=== PATIENT | female | born 1955 | race Caucasian/White ===

== ENCOUNTER 2020-01-11 07:08 | Emergency (ER) | payer SELFPAY ==
[~2020-01-11] VITALS: Ht 152.4 cm; Wt 77.1 kg
[~2020-01-11 07:08] MED LIST: FAMOTIDINE20 MG PO; GABAPENTIN300 MG PO; LEXAPRO10 MG PO; MONTELUKAST SOD10 MG PO; ROPINIROLE HCL1 MG PO; TRAZODONE HCL50 MG PO
[2020-01-11] MEDS ORDERED: SODIUM CHLORIDE 0.9% 500ML 500 ML IV ONE (07:15)
[2020-01-11 07:28] LABS: BASOPHILS % 0.6 % (0.0-1.0); EOSINOPHILS # (AUTO) 0.1 (0.0-0.4); HEMATOCRIT 38.1 % (34.2-44.1); HEMOGLOBIN 12.4 g/dL (12.0-16.0); LYMPHOCYTES # (AUTO) 0.7 (1.0-3.2); LYMPHOCYTES % 13.7 % (18.0-39.1); MEAN CORPUSCULAR HEMOGLOBIN 33.1 pg (28-32); MEAN CORPUSCULAR HGB CONC 32.5 g/dL (31-35); MEAN CORPUSCULAR VOLUME 101.6 fL (81-99); MONOCYTES # (AUTO) 0.4 (0.2-0.8); NEUTROPHILS # (AUTO) 3.9 (2.1-6.9); NEUTROPHILS % 77.5 % (38.7-80.0); PLATELET COUNT 151 x10e3/uL (140-360); RED BLOOD COUNT 3.75 x10e6/uL (3.6-5.1); RED CELL DISTRIBUTION WIDTH 14.7 % (11.7-14.4)
[2020-01-11 07:38] LABS: INR 0.98; PROTHROMBIN TIME 13.5 seconds (11.9-14.5)
[2020-01-11 07:39] LABS: PARTIAL THROMBOPLASTIN TIME 27.2 seconds (23.8-35.5)
[2020-01-11 07:48] LABS: ALANINE AMINOTRANSFERASE 19 IU/L (0-55); ALBUMIN 3.7 g/dL (3.5-5.0); ALBUMIN/GLOBULIN RATIO 1.4 (0.8-2.0); ALKALINE PHOSPHATASE 59 IU/L (40-150); ANION GAP 12.3 mmol/L (8-16); BLOOD UREA NITROGEN 14 mg/dL (7-26); BUN/CREATININE RATIO 17 (6-25); CALCIUM 8.4 mg/dL (8.4-10.2); CARBON DIOXIDE 30 mmol/L (22-29); CHLORIDE 104 mmol/L (98-107); CREATINE KINASE 129 IU/L (29-168); CREATININE, SERUM 0.81 mg/dL (0.57-1.11); EST GLOMERULAR FILTRATION RATE > 60 ML/MIN (60-); GLUCOSE 103 mg/dL (74-118); MAGNESIUM 1.8 MG/DL (1.3-2.1); POTASSIUM 4.3 mmol/L (3.5-5.1); SODIUM 142 mmol/L (136-145)
[2020-01-11] MEDS ORDERED: ALBUTEROL/IPRATROPIUM 3 ML NEB NEB ONE (09:00)
--- NOTE | 2020-01-11 09:14 | Diagnostic Imaging Report ---
CT BRAIN WO HISTORY: Tremors, history of stroke and seizure COMPARISON: Head CT and MRI of the brain 06/26/2016 Technique: Noncontrast axial scans were obtained from skull base to the vertex. Coronal and sagittal reconstructions obtained from the axial data. One or more of the following dose reduction techniques were used: Automated exposure control, adjustment of the mA and/or kV according to patient size, and/or utilization of iterative reconstruction technique. Beam hardening artifacts obscure some details. DISCUSSION: Scalp/Skull: Unremarkable. Brain sulci: Mildly prominent. Ventricles: Compensatory dilatation. Extra-axial spaces: No masses or fluid collections. Carotid siphon calcifications are present. Parenchyma: Scattered old infarcts along the bilateral parieto-occipital convexities (right greater than left) and bilateral cerebellar hemispheres are present. Mild bilateral deep white matter hypodensity is likely chronic microvascular ischemic change. Otherwise, no masses, hemorrhage, or large vascular territory acute infarct. Dural sinuses: No abnormal densities. Sellar/Suprasellar region: Intact. Skull base: Intact. Incidental findings: Bilateral ocular lens replacement. IMPRESSION: 1. No acute intracranial abnormalities. No significant changes when compared to head CT and brain MRI dated 06/26/2016. 2. Old cortical infarcts along the bilateral parieto-occipital convexities (right greater than left) and bilateral cerebellar hemispheres. 3. Mild supratentorial chronic microvascular ischemic change. Mild generalized cerebral volume loss. Signed by: Dr. Santosh Hurtado M.D. on 01/11/2020 9:11 AM
[2020-01-11] MEDS ORDERED: LORAZEPAM INJ 2 MG/ML VIAL IV ONE (09:15)
--- NOTE | 2020-01-11 09:17 | Emergency Department Note ---
History of Present Illnes History of Present Illness Chief Complaint: General Medicine Complaints History of Present Illness This is a 64 year old female Patient in from home via EMS with reports of fine ticks/tremors to her left upper extremity that started about 1 hour prior to arrival. Patient reports similar episodes to this before about a year ago which resulted in a seizure that lead to a stroke. Patient reports a history of 4 strokes in the past with residual left sided weakness. Patient also has a tight, productive cough with clear, thick sputum which she says she has chronically due to asthma and allergies. Patient is alert and oriented in triage. Persistent fine tremors noted to left upper extremity. Patient reports that she has been battling a tooth infection over the last week with antibiotics as well. Historian: Patient, Applications Support Specialist/EMS Arrival Mode: [facility] Monitor Required: No Onset (how long ago): hour(s) (1) Location: LEFT ARM Quality: TREMORS Radiation: Reports non-radiation Severity: moderate Onset quality: sudden Timing of current episode: constant Progression: unchanged Chronicity: new Context: Denies recent illness Relieving factors: none Exacerbating factors: none Associated symptoms: Reports cough Past Medical/Family History Physician Review I have reviewed the patient's past medical and family history. Any updates have been documented here. Past Medical History Recent Fever: No Clinical Suspicion of Infectio: No New/Unexplained Change in Ment: No Past Medical History: Hypertension, CVA, Seizure Disorder, Migraines, Hyperlipedemia Other Medical History: Connective tissue disorder Vertigo Neuropathy Lupus RA Fibromyalgia Past Surgical History: Hysterectomy Other Surgery: Arthroscopic knee surgery Social History Smoking Cessation: Never Smoker Counseling Performed: No Alcohol Use: None Any Illegal Drug Use: No TB Exposure/Symptoms: No Physically hurt or threatened: No Family History Family history of heart diseas: No Other Last Tetanus: UTD Any Pre-Existing Lines (PICC,: No Review of Systems Review of Systems Constitutional: Reports no symptoms EENTM: Reports no symptoms Cardiovascular: Reports no symptoms Respiratory: Reports cough Gastrointestinal: Reports no symptoms Genitourinary: Reports no symptoms Musculoskeletal: Reports no symptoms Integumentary: Reports no symptoms Neurological: Reports as per HPI, Reports tremors Psychological: Reports no symptoms Endocrine: Reports no symptoms Hematological/Lymphatic: Reports no symptoms Physical Exam Related Data Allergies: Coded Allergies: codeine (Verified Allergy, Unknown, 06/26/16) Triage Vital Signs Vital Signs Date Time Temp Pulse Resp B/P (MAP) Pulse Ox O2 Delivery O2 Flow Rate FiO2 01/11/20 07:10 100.4 91 19 128/74 95 Room Air Vital signs reviewed: Yes Physical Exam CONSTITUTIONAL Constitutional: Present well-developed, Present well-nourished HENT HENT: Present normocephalic, Present atraumatic, Present oropharynx clear/moist, Present nose normal HENT L/R: Present left ext ear normal, Present right ext ear normal EYES Eyes: Reports PERRL, Reports conjunctivae normal NECK Neck: Present ROM normal PULMONARY Pulmonary: Present effort normal, Present other (diffuse moderate expir wheezes); Absent respiratory distress CARDIOVASCULAR Cardiovascular: Present regular rhythm, Present heart sounds normal, Present capillary refill normal, Present normal rate GASTROINTESTINAL Abdominal: Present soft, Present nontender, Present bowel sounds normal GENITOURINARY Genitourinary: Present exam deferred SKIN Skin: Present warm, Present dry MUSCULOSKELETAL Musculoskeletal: Present ROM normal NEUROLOGICAL Neurological: Present alert, Present oriented x 3, Present weakness (decr str left arm/leg (chronic), tremor left hand) PSYCHOLOGICAL Psychological: Present mood/affect normal, Present judgement normal Results Laboratory Result Diagram: 01/11/20 0715 01/11/20 0715 Laboratory Laboratory Tests Test 01/11/20 07:25 01/11/20 07:15 Coronavirus (PCR) Not detected (NOTDETECTED) Influenza Virus Types A,B Antigen Negative (NEGATIVE) White Blood Count 4.97 x10e3/uL (4.8-10.8) Red Blood Count 3.75 x10e6/uL (3.6-5.1) Hemoglobin 12.4 g/dL (12.0-16.0) Hematocrit 38.1 % (34.2-44.1) Mean Corpuscular Volume 101.6 fL (81-99) Mean Corpuscular Hemoglobin 33.1 pg (28-32) Mean Corpuscular Hemoglobin Concent 32.5 g/dL (31-35) Red Cell Distribution Width 14.7 % (11.7-14.4) Platelet Count 151 x10e3/uL (140-360) Neutrophils (%) (Auto) 77.5 % (38.7-80.0) Lymphocytes (%) (Auto) 13.7 % (18.0-39.1) Monocytes (%) (Auto) 7.0 % (4.4-11.3) Eosinophils (%) (Auto) 1.0 % (0.0-6.0) Basophils (%) (Auto) 0.6 % (0.0-1.0) Neutrophils # (Auto) 3.9 (2.1-6.9) Lymphocytes # (Auto) 0.7 (1.0-3.2) Monocytes # (Auto) 0.4 (0.2-0.8) Eosinophils # (Auto) 0.1 (0.0-0.4) Basophils # (Auto) 0.0 (0.0-0.1) Absolute Immature Granulocyte (auto 0.01 x10e3/uL (0-0.1) Prothrombin Time 13.5 seconds (11.9-14.5) Prothromb Time International Ratio 0.98 Activated Partial Thromboplast Time 27.2 seconds (23.8-35.5) Sodium Level 142 mmol/L (136-145) Potassium Level 4.3 mmol/L (3.5-5.1) Chloride Level 104 mmol/L (98-107) Carbon Dioxide Level 30 mmol/L (22-29) Anion Gap 12.3 mmol/L (8-16) Blood Urea Nitrogen 14 mg/dL (7-26) Creatinine 0.81 mg/dL (0.57-1.11) Estimat Glomerular Filtration Rate > 60 ML/MIN (60-) BUN/Creatinine Ratio 17 (6-25) Glucose Level 103 mg/dL (74-118) Calcium Level 8.4 mg/dL (8.4-10.2) Magnesium Level 1.8 MG/DL (1.3-2.1) Total Bilirubin 0.5 mg/dL (0.2-1.2) Aspartate Amino Transf (AST/SGOT) 24 IU/L (5-34) Alanine Aminotransferase (ALT/SGPT) 19 IU/L (0-55) Alkaline Phosphatase 59 IU/L (40-150) Creatine Kinase 129 IU/L (29-168) Creatine Kinase MB 1.50 ng/mL (0-5.0) Troponin I 0.016 ng/mL (0-0.300) B-Type Natriuretic Peptide 60.5 pg/mL (0-100) Total Protein 6.4 g/dL (6.5-8.1) Albumin 3.7 g/dL (3.5-5.0) Globulin 2.7 g/dL (2.3-3.5) Albumin/Globulin Ratio 1.4 (0.8-2.0) Lab results reviewed: Yes Imaging Imaging results reviewed: Yes Assessment & Plan Medical Decision Making MDM tremors, h/o this in past, h/o seizures and CVA with residual left weakness - cbc, chem, ecg, cardiacs, CT brain, CXR - r/o CVA, cerebral bleed, STEMI/NSTEMI, electrolyte abnl, pneumonia Reassessment Reassessment pt improved with Ativan. Will DC home, F/U with her PCP and Neurologist today, RTED prn. Ceftin for UTI Assessment & Plan Final Impression: (1) Tremor (2) UTI (urinary tract infection) Depart Disposition: HOME, SELF-CARE Last Vital Signs Date Time Temp Pulse Resp B/P (MAP) Pulse Ox O2 Delivery O2 Flow Rate FiO2 01/11/20 07:10 100.4 91 19 128/74 95 Room Air Home Meds Reported Medications Trazodone Hcl (TRAZODONE HCL) 50 Mg Tablet, 150 MG PO HS, #30 TAB 06/27/16 Ropinirole Hcl (ROPINIROLE HCL) 1 Mg Tablet, 1 MG PO ACS, #30 TAB 06/27/16 Montelukast Sodium (MONTELUKAST SODIUM) 10 Mg Tablet, 10 MG PO TID, #30 TAB 06/27/16 Gabapentin (GABAPENTIN) 300 Mg Capsule, 600 MG PO TID, #60 CAP 06/27/16 Famotidine (FAMOTIDINE) 20 Mg Tab, 40 MG PO HS, #30 TAB 06/27/16 Escitalopram Oxalate (LEXAPRO) 10 Mg Tablet, 20 MG PO DAILY, #30 TAB 06/27/16 Medications in the ED Sodium Chloride 500 ml @ 0 mls/hr Q0M ONCE IV Last administered on 01/11/20at 07:38; Admin Dose 500 MLS/HR; Start 01/11/20 at 07:15; Stop 01/11/20 at 07:16; Status DC JOSHUA MORENO MD Jan 11, 2020 09:17
--- NOTE | 2020-01-11 09:22 | Diagnostic Imaging Report ---
X-ray chest frontal view History: Tremors Comparison: None Findings: Lines and tubes: Not applicable Central airways: Unremarkable Cardiac silhouette: Unremarkable Mediastinal silhouettes: Unremarkable Pleura: No pleural effusion, pneumothorax or thickening Diaphragms: Unremarkable Lungs: No focal lung disease Skeletal structures: Unremarkable Extrathoracic soft tissues: Unremarkable Impression: No acute cardiopulmonary disease Signed by: Loc Brown MD on 01/11/2020 9:19 AM
[2020-01-11] MEDS ORDERED: KETOROLAC TROMETHAMINE 30 MG/ML VIAL IV STA (09:58)
[2020-01-11 10:30] LABS: CLARITY,URINE CLOUDY (CLEAR); COLOR,URINE YELLOW (YELLOW)
[2020-01-11 10:31] LABS: BILIRUBIN,URINE SMALL (NEGATIVE); KETONES,URINE NEGATIVE (NEGATIVE); LEUKOCYTE ESTERASE ,URINE TRACE (NEGATIVE); NITRITE,URINE NEGATIVE (NEGATIVE); PROTEIN,URINE DIPSTICK NEGATIVE (NEGATIVE); URINE UROBILINOGEN 0.2 mg/dL (0.2 - 1)
[2020-01-11 10:33] LABS: BACTERIA,URINE RARE /HPF; EPITHELIAL CELLS,URINE FEW /LPF
--- OUTSIDE RECORDS SUMMARY | 2020-01-12 09:57 | XMS REPORT | Clinical Summary ---
Author Author DON[facility] Address Unknown Phone Unavailable Care Team Providers Care Chief Digital Media Officer Name Role Phone PCP Unavailable Allergies Comments Active Allergy Reactions Severity Noted Date Codeine 09/20/2012 Lecithin, Soy (Bulk) Shortness Of High 9 Breath Oats (Jeanie) Shortness Of High 02/13/2019 Breath Peas Shortness Of High 02/13/2019 Breath Squash Shortness Of High 02/13/2019 Breath Dumas Shortness Of High 02/13/2019 Breath Tomato (Solanum Shortness Of High 02/13/2019 Lycopersicum) Breath Wheat Containing Prod Shortness Of High 02/14/20 19 Breath Medications End Date Status Medication Sig Dispensed Refills Start Date Active enalapril (VASOTEC) 10 MG Take 10 mg by 0 tablet mouth every 12 (twelve) hours. Active omeprazole (PRILOSEC) 20 Take 20 mg by 0 MG capsule mouth daily. Active predniSONE (DELTASONE) 50 Take 25 mg by 0 MG tablet mouth daily. Active chloroquine (ARALEN) 250 Take 300 mg 0 mg tablet by mouth daily. Taken every 6pm Active losartan (COZAAR) 50 MG Take 50 mg by 0 tablet mouth every 8 (eight) hours. Active acetaminophen (TYLENOL) Take 1,000 mg 0 500 MG tablet by mouth every 6 (six) hours as needed. Active nystatin (MYCOSTATIN) Take by mouth 0 100,000 unit/mL every 8 suspension (eight) hours. Dose: 100,000 Ul/ml Give 1 drop evry 8 hrs Active Missing or Non-Formulary Take 100 mg 0 Medication by mouth daily. Active fluticasone-salmeterol Inhale 1 puff 0 (ADVAIR) 100-50 mcg/dose by mouth via diskus inhaler inhaler every 12 (twelve) hours. Active Missing or Non-Formulary Take 600 mg 0 Medication by mouth every 12 (twelve) hours. 05/14/2019 levETIRAcetam (KEPPRA) Take 1 tablet 60 tablet 2 1 500 MG tablet (500 mg 9 total) by mouth 2 (two) times daily for 90 days. 05/14/2019 gabapentin (NEURONTIN) Take 1 90 capsule 2 300 MG capsule capsule (300 9 mg total) by mouth 3 (three) times daily for 90 days. Active Problems Problem Noted Date Cerebrovascular accident (CVA), unspecified mechanism 02/12/2019 Pneumonia 09/20/2012 Status post emergency tracheotomy for assistance in b reathing 09/20/2012 Weakness generalized 09/20/2012 Encounters Care Team Description Date Type Specialty 02/13/2019 Travel Lilli Cronin MD Bershad, Bradley Arguelles MD Cerebrovascular accident (CVA), unspecif ied mechanism (HCC) (Primary Dx) 02/12/2019 Hospital Intensive Care - Encounter 02/13/2019 02/12/2019 Travel after 01/10/2019 Social History Date Tobacco Use Types Packs/Day Years Used Never Smoker Drinks/Week oz/Week Comments Alcohol Use Not Asked Sex Assigned at Date Recorded Not on file Last Filed Vital Signs Reading Time Taken Comments Vital Sign 112/54 02/13/2019 8:00 PM GLASS ROBOT OPERATOR Blood Pressure 84 02/13/2019 8:07 PM GLASS ROBOT OPERATOR Pulse 36.9 C (98.4 F) 02/13/2019 7:00 PM GLASS ROBOT OPERATOR Temperature 20 02/13/2019 8:07 PM GLASS ROBOT OPERATOR Respiratory Rate 99% 02/13/2019 8:07 PM GLASS ROBOT OPERATOR Oxygen Saturation - - Inhaled Oxygen Concentration 89.4 kg (197 lb) 02/12/2019 6:07 PM GLASS ROBOT OPERATOR Weight 151.1 cm (4' 11.5") 02/13/2019 8:00 AM GLASS ROBOT OPERATOR Height 39.12 02/12/2019 6:07 PM GLASS ROBOT OPERATOR Body Mass Index Plan of Treatment Health Maintenance Due Date Last Done Comments BREAST CANCER SCREENING 1955 COLON CANCER SCREENING 1955 COLONOSCOPY PNEUMOCOCCAL VACCINE 0-64 08/08/1961 YRS (1 of 1 - PPSV23) CERVICAL CANCER SCREENING 08/08/1976 PAP ONLY (Age 21-65) LIPID PANEL 09/25/2015 09/24/2012 MEDICARE ANNUAL WELLNESS 11/10/2018 (YEAR 2 or FIRST YEAR if no IPPE) INFLUENZA VACCINE (#1) 2019 Procedures Comments Procedure Name Priority Date/Time Associated Diag nosis RHYTHM STRIP - SCAN 02/22/2019 11:10 AM GLASS ROBOT OPERATOR REPORT OF PROCEDURE - 02/22/2019 ENDOSCOPY SCAN 11:10 AM GLASS ROBOT OPERATOR ECHOCARDIOGRAM REPORT - 02/13/2019 SCAN 9:20 PM GLASS ROBOT OPERATOR POCT-GLUCOSE METER Routine 02/13/2019 6:05 PM GLASS ROBOT OPERATOR MR BRAIN WITHOUT IV Routine 02/13/2019 CONTRAST 5:05 PM GLASS ROBOT OPERATOR POCT-GLUCOSE METER Routine 02/13/2019 11:59 AM GLASS ROBOT OPERATOR ECHO W CONTRAST & DOPPLER Routine 02/13/2019 9:59 AM GLASS ROBOT OPERATOR POCT-GLUCOSE METER Routine 02/13/2019 8:05 AM GLASS ROBOT OPERATOR CBC W/PLT COUNT & AUTO Routine 02/13/2019 DIFFERENTIAL 3:46 AM GLASS ROBOT OPERATOR CBC W/PLT COUNT & AUTO Routine 02/13/2019 DIFFERENTIAL 3:46 AM GLASS ROBOT OPERATOR HEMOGLOBIN A1C Routine 02/13/2019 3:46 AM GLASS ROBOT OPERATOR POCT-GLUCOSE METER Routine 02/12/2019 10:25 PM GLASS ROBOT OPERATOR XR CHEST 1 VIEW STAT 02/12/2019 PORTABLE/BEDSIDE 6:43 PM GLASS ROBOT OPERATOR CRITICAL CARE Routine 02/12/2019 6:24 PM GLASS ROBOT OPERATOR ECG 12-LEAD STAT 02/12/2019 6:21 PM GLASS ROBOT OPERATOR CBC W/PLT COUNT & AUTO STAT 02/12/2019 DIFFERENTIAL 6:15 PM GLASS ROBOT OPERATOR CBC W/PLT COUNT & AUTO STAT 02/12/2019 DIFFERENTIAL 6:15 PM GLASS ROBOT OPERATOR COMPREHENSIVE METABOLIC STAT 02/12/2019 PANEL 6:15 PM GLASS ROBOT OPERATOR TROPONIN I STAT 02/12/2019 6:15 PM GLASS ROBOT OPERATOR APTT STAT 02/12/2019 6:15 PM GLASS ROBOT OPERATOR PROTHROMBIN TIME/INR STAT 02/12/2019 6:15 [address]/CTA CAROTID STAT 02/12/2019 6:12 PM GLASS ROBOT OPERATOR CTA BRAIN STAT 02/12/2019 6:12 PM GLASS ROBOT OPERATOR POCT-GLUCOSE METER Routine 02/12/2019 6:[address] BRAIN/STROKE TEST STAT 02/12/2019 DESIGN 5:49 PM GLASS ROBOT OPERATOR after 01/10/2019 Results * RHYTHM STRIP - SCAN (02/22/2019 11:10 AM GLASS ROBOT OPERATOR) Narrative Performed At This result has an attachment that is n ot available. * EKG-SCANNED (02/22/2019 11:10 AM GLASS ROBOT OPERATOR) Narrative Performed At This result has an attachment that is n ot available. * ECHOCARDIOGRAM REPORT - SCAN (02/13/2019 9:20 PM GLASS ROBOT OPERATOR) Narrative Performed At This result has an attachment that is n ot available. * POC-Glucose meter (02/13/2019 6:05 PM GLASS ROBOT OPERATOR) Only the most recent of 5 results within the time period is included. POC-Glucose 96Comment: : TESTED AT [facility] 70 - 110 mg/dL C [facility] [id number] [facility] [id number]: Inspector Outside Steam Distribution/Cupola Melting Supervisor [facility] = [id number] for Tiesha Alfredo Specimen Blood Performing Organization Address City/State/Zipcode Ph one Number [facility] [address] [place], [place] [address] [facility]ENTER * MR brain without IV contrast (02/13/2019 5:05 PM GLASS ROBOT OPERATOR) Specimen Narrative Performed At FINAL REPORT [facility] MR, BRAIN, WITHOUT CONTRAST INDICATION: Stroke, follow up TECHNIQUE: Multiplanar, multisequence M R imaging of the brain without intravenous contrast. COMPARISON: CT and CTA 02/12/2019 FINDINGS: Intracranial: There is bilateral LEAD SPRINKLER te rritory encephalomalacia, right greater than left, with exvacuodi latation of the posterior right lateral ventricle. Encephalomalac ia in the bilateral cerebellar hemispheres, evolved from prior hemorrh agic infarcts. There is no restricted diffusion to indicate acute infarct. Scattered foci of T2 prolongation within the periventricular and subcortical white matter are a nonspecific finding commonly attr ibuted to chronic small vessel ischemic disease. No acute intracranial hemorrhage. No ma ss effect. No hydrocephalus. Visualized intracranial flow voids are of normal course and caliber. Sinuses: No evidence of sinusitis. Mast oids are clear. Orbits: Globes are intact. Calvarium \\T\\ scalp: Unremarkable. IMPRESSION: 1.No acute infarct or intracranial hemo rrhage. 2.Multifocal chronic infarcts as above. Signed: Haley Pettit MD Report Verified Date/Time: 02/13/2019 18:50:54 Procedure Note Interface, External Ris In - 02/13/2019 6:54 PM GLASS ROBOT OPERATOR FINAL REPORT MR, BRAIN, WITHOUT CONTRAST INDICATION: Stroke, follow up TECHNIQUE: Multiplanar, multisequence MR imaging of the brain without intravenous contrast. COMPARISON: CT and CTA 02/12/2019 FINDINGS: Intracranial: There is bilateral LEAD SPRINKLER territory encephalomalacia, right greater than left, with exvacuodilatation of the posterior right lateral ventricle. Encephalomalacia in the bilateral cerebellar hemispheres, evolved from prior hemorrhagic infarcts. There is no restricted diffusion to indicate acute infarct. Scattered foci of T2 prolongation within the periventricular and subcortical white matter are a nonspecific finding commonly attributed to chronic small vessel ischemic disease. No acute intracranial hemorrhage. No mass effect. No hydrocephalus. Visualized intracranial flow voids are of normal course and caliber. Sinuses: No evidence of sinusitis. Mastoids are clear. Orbits: Globes are intact. Calvarium \\T\\ scalp: Unremarkable. IMPRESSION: 1.No acute infarct or intracranial hemor rhage. 2.Multifocal chronic infarcts as above. Signed: Haley Pettit MD Report Verified Date/Time: 02/13/2019 18:50:54 Performing Organization Address City/State/Zipcode Ph one Number [facility] * Transthoracic 2D echo w contrast & doppler (02/13/2019 9:59 AM GLASS ROBOT OPERATOR) Ejection [facility] ECHO Fraction [facility] Specimen Narrative Performed At Transthoracic Echocardiography Report (TTE) SLE ECH O [facility]ART[facility] Demographics [facility] Patient Name RITU COLES ate of Study 02/13/2019 ESTEFANIA Gender Female Visit Number [id number] Race Unknown Room Number 7517 Number Date of 1955 Referring Physician Age 63 year(s) Oxygen System Tester Marjorie Hirsch [facility] Interpreting Physician ZOE Whitmore Procedure Type of Study TTE procedure:2DECHO W/CONT RAST & DOPPLER (Routine) Indications:Stroke and CVA. Clinical History CVA;LUPUS;PNEUMONIA;TRACHEOSTOMY. Contrast Medium: Definity. Height: 59 inches Weight: 89.36 kg (197 lbs) BSA: 1.83 m^2 BMI: 39.79 kg/m^2 HR: 67 bpm BP: 114/57 mmHg Summary The left ventricle is chamber size (by PSLAX dimension) is normal (male - LVIDd 4.2-5.8cm) . All of the LV segmen ts contract normally . Estimated LVEF by qualitative assessment is ed l (55-60%) . Normal diastolic function. Estimated peak systolic PA pressure is 40-45 mmHg . Alwn-qb-tekohqch tricuspid regurgitatio n. IV saline contrast injection was negati ve for a PFO (patent foramen ovale) at rest and post Valsalva . Signature Findings Left Ventricle The left ascencion tricle is chamber size (by PSLAX dime nsion) is normal (male - LVIDd 4.2-5.8cm) . Norm al LV wall thickness. All of the LV segments contract normally . Elisa mated LVEF by qualitative assessment is normal (55- 60%) . Norm al diastolic function. LV e ndocardium is adequately visualized with IV ultr asound enhancing agent. Left Atrium LA size is normal (16-34 ml/m2) . Right Ventricle The right ve ntricular chamber size and systolic func tion are within normal limits. Right Atrium RA size is normal. Atrial Septum IV saline c ontrast injection was negative for a PFO (pat ent foramen ovale) at rest and post Valsalva . Aortic Valve Normal AoV structure. Mitral Valve Normal MV s tructure. Trac e mitral regurgitation. Tricuspid Valve TV structure is normal. Elisa mated peak systolic PA pressure is 40-45 mmHg . Mild -to-moderate tricuspid regurgitation. Pulmonic Valve PV is not we ll visualized. A tr julio cesar of pulmonary regurgitation. Aorta Aortic root size (SInus of Valsalva diameter) is norm al . Pericardium No pericar dial effusion is visualized. IVC/SVC/PA/PV/Pleural The estimated R A pressure by IVC dynamics 5-10mmHg . Chambers/Structures Left Atrium LA Volume: 28.56 ml LA Area: 12.99 cm^2 LA Vol. Index: 16 ml/m^2 Left Ventricle LVIDd: 4.99 cm LVEDV:117.63 ml LVIDs: 3.12 cm LVESV:30.37 ml LV Septum Diastolic: 0.59 cm LVEF 2D Cube: 75.5 % LV PW Diastolic: 1.04 cm LVEDV De La Vega's:82.26 ml LV FS: 37.5 % LVESV De La Vega's:40.04 ml LVEF De La Vega's: 51.3 % LVEDVI: 45 ml/m^2 LVESVI: 22 ml/m^2 LVOT Diameter: 2.07 cm LVEF: 74.2 % Doppler/Quantitative Measurements Mitral Valve MV Peak E-Wave: 0.98 m/s MV Peak A-Wave: 0.86 m/s E/A Ratio: 1.14 Peak Gradient: 3.81 mmHg Deceleration Time: 185.1 msec MV Sage. Peak: Aortic Valve Peak Velocity: 1.77 m/s Mean Velocity: 1.15 m/s Peak Gradient: 12.48 mmHg Mean Gradient: 6.24 mmHg AV Area (continuity): 2.42 cm^2 AV VTI: 40.69 cm AV DVI: 0.72 LVOT Peak Velocity: 1.32 m/s Peak Gradient: 6.92 mmHg Mean Velocity: 0.85 m/s Mean Gradient: 3.45 mmHg LVOT Diameter: 2.07 cm LVOT VTI: 29.24 cm LVOT Area: 3.37 cm^2 LVOT SV:98.35 ml LVOT CO: 6.59 l/min LVOT CI: 3.6 l/min/m^2 Procedure Note Interface, External Ris In - 02/13/2019 12:42 PM GLASS ROBOT OPERATOR Transthoracic Echocardiography Report (TTE) Demographics Patient Name RITU COLES Date of Study 02/13/2019 ESTEFANIA Gender Female Visit Number [id number] Race Unknown Room Number 7517 Number Date of 1955 Referring Physician Age 63 year(s) Oxygen System Tester Marjorie Hirsch [facility] Interpreting Floyd Torrez Physician Procedure Type of Study TTE procedure:2DECHO W/CONTRAST & DOPPLER (Routine) Indications:Stroke and CVA. Clinical History CVA;LUPUS;PNEUMONIA;TRACHEOSTOMY. Contrast Medium: Definity. Height: 59 inches Weight: 89.36 kg (197 lbs) BSA: 1.83 m^2 BMI: 39.79 kg/m^2 HR: 67 bpm BP: 114/57 mmHg Summary The left ventricle is chamber size (by PSLAX dimension) is normal (male - LVIDd 4.2-5.8cm) . All of the LV segments contract normally . Estimated LVEF by qualitative assessment is normal (55-60%) . Normal diastolic function. Estimated peak systolic PA pressure is 40-45 mmHg . Iwjh-yh-bvspivtb tricuspid regurgitation. IV saline contrast injection was negative for a PFO (patent foramen ovale) at rest and post Valsalva . Signature Findings Left Ventricle The left ventricle is chamber size (by PSLAX dimension) is normal (male - LVIDd 4.2-5.8cm) . Normal LV wall thickness. All of the LV segments contract normally . Estimated LVEF by qualitative assessment is normal (55-60%) . Normal diastolic function. LV endocardium is adequately visualized with IV ultrasound enhancing agent. Left Atrium LA size is normal (16-34 ml/m2) . Right Ventricle The right ventricular chamber size and systolic function are within normal limits. Right Atrium RA size is normal. Atrial Septum IV saline contrast injection was negative for a PFO (patent foramen ovale) at rest and post Valsalva . Aortic Valve Normal AoV structure. Mitral Valve Normal MV structure. Trace mitral regurgitation. Tricuspid Valve TV structure is normal. Estimated peak systolic PA pressure is 40-45 mmHg . Rwnd-tp-vchiiqki tricuspid regurgitation. Pulmonic Valve PV is not well visualized. A trace of pulmonary regurgitation. Aorta Aortic root size (SInus of Valsalva diameter) is normal . Pericardium No pericardial effusion is visualized. IVC/SVC/PA/PV/Pleural The estimated RA pressure by IVC dynamics 5-10mmHg . Chambers/Structures Left Atrium LA Volume: 28.56 ml LA Area: 12.99 cm^2 LA Vol. Index: 16 ml/m^2 Left Ventricle LVIDd: 4.99 cm LVEDV:117.63 ml LVIDs: 3.12 cm LVESV:30.37 ml LV Septum Diastolic: 0.59 cm LVEF 2D Cube: 75.5 % LV PW Diastolic: 1.04 cm LVEDV De La Vega's:82.26 ml LV FS: 37.5 % LVESV De La Vega's:40.04 ml LVEF De La Vega's: 51.3 % LVEDVI: 45 ml/m^2 LVESVI: 22 ml/m^2 LVOT Diameter: 2.07 cm LVEF: 74.2 % Doppler/Quantitative Measurements Mitral Valve MV Peak E-Wave: 0.98 m/s MV Peak A-Wave: 0.86 m/s E/A Ratio: 1.14 Peak Gradient: 3.81 mmHg Deceleration Time: 185.1 msec MV Sage. Peak: Aortic Valve Peak Velocity: 1.77 m/s Mean Velocity: 1.15 m/s Peak Gradient: 12.48 mmHg Mean Gradient: 6.24 mmHg AV Area (continuity): 2.42 cm^2 AV VTI: 40.69 cm AV DVI: 0.72 LVOT Peak Velocity: 1.32 m/s Peak Gradient: 6.92 mmHg Mean Velocity: 0.85 m/s Mean Gradient: 3.45 mmHg LVOT Diameter: 2.07 cm LVOT VTI: 29.24 cm LVOT Area: 3.37 cm^2 LVOT SV:98.35 ml LVOT CO: 6.59 l/min LVOT CI: 3.6 l/min/m^2 Performing Organization Address City/State/Zipcode Ph one Number SLE ECHO [facility] * CBC with platelet count + automated diff (02/13/2019 3:46 AM GLASS ROBOT OPERATOR) Only the most recent of 2 results within the time period is included. WBC 5.7 3.5 - 10.5 K/L [facility] RBC 3.39 (L) 3.93 - 5.22 M/L [facility] Hemoglobin 10.9 (L) 11.2 - 15.7 GM/DL [facility] Hematocrit 32.5 (L) 34.1 - 44.9 % [facility] MCV 95.9 (H) 79.4 - 94.8 fL [facility] MCH 32.2 25.6 - 32.2 pg [facility] MCHC 33.5 32.2 - 35.5 GM/DL [facility] RDW 13.4 11.7 - 14.4 % [facility] Platelets 149 (L) 150 - 450 K/CU MM [facility] MPV 9.7 9.4 - 12.3 fL [facility] nRBC 0 0 - 0 /100 WBC [facility] % Neutros 65 % [facility] % Lymphs 26 % [facility] % Monos 8 % [facility] % Eos 1 % [facility] % Baso 0 % [facility] # Neutros 3.70 1.56 - 6.13 K/L [facility] # Lymphs 1.48 1.18 - 3.74 K/L [facility] # Monos 0.43 (H) 0.24 - 0.36 K/L [facility] # Eos 0.03 (L) 0.04 - 0.36 K/L [facility] # Baso 0.02 0.01 - 0.08 K/L [facility] Immature 0 0 - 1 % [facility] Specimen Blood Performing Organization Address City/[facility] Ph one Number [place] [phone] [facility] * Hemoglobin A1c (02/13/2019 3:46 AM GLASS ROBOT OPERATOR) Hemoglobin A1C 4.9 4.3 - 6.1 % [facility] Specimen Blood Performing Organization Address City/[facility] Ph one Number [place] [phone] [facility] * XR chest 1 view portable / bedside (02/12/2019 6:43 PM GLASS ROBOT OPERATOR) Specimen Narrative Performed At FINAL REPORT [facility] TECHNIQUE: Frontal view of the chest. INDICATION: Stroke Eval COMPARISON:09/26/2012 IMPRESSION: Lines and hardware: None. Heart and mediastinum: Unremarkable. Lungs and pleura: No focal airspace con solidation. Minimal left basilar atelectasis. Trace left pleural effusion. No pneumothorax. Soft tissues and bones: No acute abnorm ality. Signed: Mendoza Chadwick MD Report Verified Date/Time: 02/12/2019 19:19:26 Reading Location: [facility] C013 Consult Reading Room Procedure Note Interface, External Ris In - 02/12/2019 7:21 PM GLASS ROBOT OPERATOR FINAL REPORT TECHNIQUE: Frontal view of the chest. INDICATION: Stroke Eval COMPARISON:09/26/2012 IMPRESSION: Lines and hardware: None. Heart and mediastinum: Unremarkable. Lungs and pleura: No focal airspace consolidation. Minimal left basilar atelectasis. Trace left pleural effusion. No pneumothorax. Soft tissues and bones: No acute abnormality. Signed: Mendoza Chadwick MD Report Verified Date/Time: 02/12/2019 19:19:26 Reading Location: [facility] C0[facility] Consult Reading Room Performing Organization Address City/State/Zipcode Ph one Number [facility] * CRITICAL CARE (02/12/2019 6:24 PM GLASS ROBOT OPERATOR) Narrative Performed At Lilli Cronin MD 02/12/2019 9:28 PM Critical Care Performed by: Lilli Cronin MD Authorized by: Lilli Cronin MD Total critical care time: 35 minutes Critical care time was exclusive of sep arately billable procedures and treating other patients. Critical care was necessary to treat or prevent imminent or life-threatening deterioration of the f ollowing conditions: CUPROUS CHLORIDE OPERATOR failure or compromise. Critical care was time spent personally by me on the following activities: discussions with consultants, evaluatio n of patient's response to treatment, examination of patient, obta ining history from patient or surrogate, ordering and performing sly tments and interventions, ordering and review of laboratory studies, order ing and review of radiographic studies, pulse oximetry and re-evaluati on of patient's condition. * ECG 12 lead (02/12/2019 6:21 PM GLASS ROBOT OPERATOR) Specimen Narrative Performed At Ventricular Rate 73 BPM GE MUSE Atrial Rate 73 BPM P-R Interval 108 ms QRS Duration 96 ms Q-T Interval 388 ms QTC Calculation(Bazett) 427 ms P Os[place] 55 degrees R [place] -15 degrees T [place] 67 degrees Sinus rhythm with short [place] Low voltage QRS Cannot rule out Anterior infarct , age undetermined Abnormal ECG No previous ECGs available Confirmed by MD TORREZ JOSEPH P ([id number]) on 02/13/2019 8:14:14 AM Procedure Note Interface, External Ris In - 02/13/2019 8:14 AM GLASS ROBOT OPERATOR Ventricular Rate 73 BPM Atrial Rate 73 BPM P-R Interval 108 ms QRS Duration 96 ms Q-T Interval 388 ms QTC Calculation(Bazett) 427 ms P [place] 55 degrees R [place] -15 degrees T [place] 67 degrees Sinus rhythm with short [place] Low voltage QRS Cannot rule out Anterior infarct , age undetermined Abnormal ECG No previous ECGs available Confirmed by MD TORREZ JOSEPH P ([id number]) on 02/13/2019 8:14:14 AM Performing Organization Address [facility], [facility] one Number GE MUSE * Troponin I (02/12/2019 6:15 PM GLASS ROBOT OPERATOR) Troponin I <0.01 0.00 - 0.03 ng/mL [facility] Specimen Blood Narrative Performed At Troponin I (TnI) levels must be interpreted in the co ntext of the presenting [facility] symptoms and the clinical findings. Elevated TnI leve ls indicate myocardial [facility] damage, but are not specific for ischem ic heart disease. Elevated TnI levels are seen in patients with other cardiac con ditions (including myocarditis and congestive heart failure), and slight T nI elevations occur in patients with other conditions, including sepsis, aracely al failure, acidosis, acute neurological disease, and persistent tachyarrhythmia . Performing Organization Address [facility], [facility] one Number [facility] [address] [place], [place] [address] MED[facility]ENTER * aPTT (02/12/2019 6:15 PM GLASS ROBOT OPERATOR) PTT 30.8 22.5 - 36.0 seconds [facility] Specimen Blood Performing Organization Address [facility], [facility] one Number [facility] [address] [place], [place] [address] [facility] * Prothrombin time/INR (02/12/2019 6:15 PM GLASS ROBOT OPERATOR) Protime 13.8 11.9 - 14.2 seconds [facility] INR 1.1 <=5.9 [facility] Specimen Blood Narrative Performed At Effective 07/19/2018: PT Reference Range Change [facility] New: 11.9-14.2 Previous: 11.7-14.7 [facility] MIGUEL ANGEL TER RECOMMENDED COUMADIN/WARFARIN INR THERA PY RANGES STANDARD DOSE: 2.0-3.0 Includes: PROP HYLAXIS for venous thrombosis, systemic embolization; TREATMENT for venous thro mbosis and/or pulmonary embolus. HIGH RISK: Target INR is 2.5-3.5 for pa tients wiht mechanical heart valves. Performing Organization Address City/State/Zipcode Ph one Number [address] [facility] * Comprehensive metabolic panel (02/12/2019 6:15 PM GLASS ROBOT OPERATOR) Protein, Total 6.3 6.0 - 8.3 gm/dL [facility] Albumin 3.9 3.5 - 5.0 g/dL [facility] Alkaline 66 40 - 150 U/L [facility] Total Bilirubin 0.5 0.2 - 1.2 mg/dL [facility] Sodium 134 (L) 136 - 145 meq/L [facility] Potassium 4.0 3.5 - 5.1 meq/L [facility] Chloride 98 98 - 107 meq/L [facility] CO2 27 22 - 29 meq/L [facility] BUN 21 7 - 21 mg/dL [facility] Creatinine 0.87 0.57 - 1.25 mg/dL [facility] Glucose 105 70 - 105 mg/dL [facility] Calcium 8.9 8.4 - 10.2 mg/dL [facility] AST 39 (H) 5 - 34 U/L [facility] ALT 53 6 - 55 U/L [facility] EGFR 66Comment: ESTIMATED GFR IS mL/min/1.73 sq m [facility] NOT ACCURATE [facility] CLEARANCE IN PREDICTING [facility] GLOMERULAR FILTRATION RATE. ESTIMATED GFR IS NOT APPLICABLE FOR DIALYSIS PATIENTS. Specimen Blood Performing Organization Address City/State/Zipcode Ph one Number [facility] [address] [address] [facility] * CTA carotid (02/12/2019 6:12 PM GLASS ROBOT OPERATOR) Specimen Narrative Performed At FINAL REPORT [facility] CLINICAL HISTORY: Ataxia, stroke suspec steffany TECHNIQUE: Contiguous contrast-en hanced axial images through the neck followed by axial images through t he head with coronal and sagittal reformations to assess the art erial circulation. 3-D reconstructions were performed using a volume rendered technique separately on a workstation. This exam was performed according to [facility] departmental dose optimization program which includes aut omated exposure control, adjustment of the mA and/or kV accordin g to the patient size, and/or use of an iterative reconstruction tech nique. Stenosis evaluation reported in complia nce with NASCET criteria. COMPARISON: Noncontrast CT head 019 FINDINGS: CTA head: There is no evidence of intracranial an eurysm. No major branch vessel occlusion or high-grade focal stenosis. Right LEAD SPRINKLER is predominantly supplied by [employer] The major intradural venous sinuses are patent. CTA neck: Great vessel origins: No occlusion or h igh-grade stenosis. Carotid arteries: No occlusion or high- grade stenosis. Vertebral arteries: No occlusion or hig h-grade stenosis. Mild degenerative changes of the cervic al spine. Cervical soft tissues are unremarkable. Visualized daphnie ng apices are clear. IMPRESSION: No large vessel occlusion or high-grade focal stenosis. Signed: Haley Pettit MD Report Verified Date/Time: 02/12/2019 19:06:41 Procedure Note Interface, External Ris In - 02/12/2019 7:08 PM GLASS ROBOT OPERATOR FINAL REPORT CLINICAL HISTORY: Ataxia, stroke suspected TECHNIQUE: Contiguous contrast-enhanced axial images through the neck followed by axial images through the head with coronal and sagittal reformations to assess the arterial circulation. 3-D reconstructions were performed using a volume rendered technique separately on a workstation. This exam was performed according to the departmental dose optimization program which includes automated exposure control, adjustment of the mA and/or kV according to the patient size, and/or use of an iterative reconstruction technique. Stenosis evaluation reported in compliance with NASCET criteria. COMPARISON: Noncontrast CT head 02/12/2019 FINDINGS: CTA head: There is no evidence of intracranial aneurysm. No major branch vessel occlusion or high-grade focal stenosis. Right LEAD SPRINKLER is predominantly supplied by [employer] The major intradural venous sinuses are patent. CTA neck: Great vessel origins: No occlusion or high-grade stenosis. Carotid arteries: No occlusion or high-grade stenosis. Vertebral arteries: No occlusion or high-grade stenosis. Mild degenerative changes of the cervical spine. Cervical soft tissues are unremarkable. Visualized lung apices are clear. IMPRESSION: No large vessel occlusion or high-grade focal stenosis. Signed: Haley Pettit MD Report Verified Date/Time: 02/12/2019 19:06:41 Performing Organization Address City/State/Zipcode Ph one Number [employer] RIS * CTA brain (02/12/2019 6:12 PM GLASS ROBOT OPERATOR) Specimen Narrative Performed At FINAL REPORT [facility] CLINICAL HISTORY: Ataxia, stroke suspec steffany TECHNIQUE: Contiguous contrast-en hanced axial images through the neck followed by axial images through t he head with coronal and sagittal reformations to assess the art erial circulation. 3-D reconstructions were performed using a volume rendered technique separately on a workstation. This exam was performed according to e departmental dose optimization program which includes aut omated exposure control, adjustment of the mA and/or kV accordin g to the patient size, and/or use of an iterative reconstruction tech nique. Stenosis evaluation reported in complia nce with NASCET criteria. COMPARISON: Noncontrast CT head 019 FINDINGS: CTA head: There is no evidence of intracranial an eurysm. No major branch vessel occlusion or high-grade focal stenosis. Right LEAD SPRINKLER is predominantly supplied by [employer] The major intradural venous sinuses are patent. CTA neck: Great vessel origins: No occlusion or h igh-grade stenosis. Carotid arteries: No occlusion or high- grade stenosis. Vertebral arteries: No occlusion or hig h-grade stenosis. Mild degenerative changes of the cervic al spine. Cervical soft tissues are unremarkable. Visualized daphnie ng apices are clear. IMPRESSION: No large vessel occlusion or high-grade focal stenosis. Signed: Haley Pettit MD Report Verified Date/Time: 02/12/2019 19:06:41 Procedure Note Interface, External Ris In - 02/12/2019 7:08 PM GLASS ROBOT OPERATOR FINAL REPORT CLINICAL HISTORY: Ataxia, stroke suspected TECHNIQUE: Contiguous contrast-enhanced axial images through the neck followed by axial images through the head with coronal and sagittal reformations to assess the arterial circulation. 3-D reconstructions were performed using a volume rendered technique separately on a workstation. This exam was performed according to the departmental dose optimization program which includes automated exposure control, adjustment of the mA and/or kV according to the patient size, and/or use of an iterative reconstruction technique. Stenosis evaluation reported in compliance with NASCET criteria. COMPARISON: Noncontrast CT head 02/12/2019 FINDINGS: CTA head: There is no evidence of intracranial aneurysm. No major branch vessel occlusion or high-grade focal stenosis. Right LEAD SPRINKLER is predominantly supplied by [employer] The major intradural venous sinuses are patent. CTA neck: Great vessel origins: No occlusion or high-grade stenosis. Carotid arteries: No occlusion or high-grade stenosis. Vertebral arteries: No occlusion or high-grade stenosis. Mild degenerative changes of the cervical spine. Cervical soft tissues are unremarkable. Visualized lung apices are clear. IMPRESSION: No large vessel occlusion or high-grade focal stenosis. Signed: Haley Pettit MD Report Verified Date/Time: 02/12/2019 19:06:41 Performing Organization Address City/State/Zipcode Ph one Number [facility] * CT brain/stroke protocol (02/12/2019 5:49 PM GLASS ROBOT OPERATOR) Specimen Narrative Performed At FINAL REPORT [facility] CT, BRAIN/STROKE PROTOCOL INDICATION: Ataxia, stroke suspected cva TECHNIQUE: Noncontrast axial imaging wa s obtained from the vertex to the skull base. Axial images were recon structed using a bone algorithm. DOSE REDUCTION: Dose modulation, iterat silvano reconstruction, and/or weight-based adjustment of the mA/kV wa s utilized to reduce the radiation dose to as low as reasonably achievable. COMPARISON: MRI brain 09/23/2012 FINDINGS: Intracranial: Possible development of e ncephalomalacia in the bilateral mesial occipital parietal lob es, right greater than left, with ex vacuo dilatation of the posteri or right lateral ventricle. Encephalomalacia in the bilateral cereb ellar hemispheres, evolved from previously demonstrated hemorrhagi c infarcts. Scattered foci of hypoattenuation within the periventricu lar and subcortical white matter are a nonspecific finding common ly attributed to chronic small vessel ischemic disease. No intracranial hemorrhage or abnormal extra-axial collection. No evidence of acute territorial infarct. No mass effect. No hydrocephalus. Osseous structures: No fracture. No gonzalo picious lesion. Paranasal sinuses and mastoid air cells : No evidence of sinusitis. Mastoids are clear. Orbital contents: Globes are intact. IMPRESSION: 1.Bilateral LEAD SPRINKLER territory infarcts, new since 2012 but chronic appearing. 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 3.No acute intracranial hemorrhage. If there is persistent clinical concern for intracranial pathology, MR examination is recommended for furth er characterization. These findings were discussed with Dr. LILLI CRONIN on 02/12/2019 6:02 PM. Signed: Haley Pettit MD Report Verified Date/Time: 02/12/2019 18:02:57 Procedure Note Interface, External Ris In - 02/12/2019 6:05 PM GLASS ROBOT OPERATOR FINAL REPORT CT, BRAIN/STROKE PROTOCOL INDICATION: Ataxia, stroke suspected cva TECHNIQUE: Noncontrast axial imaging was obtained from the vertex to the skull base. Axial images were reconstructed using a bone algorithm. DOSE REDUCTION: Dose modulation, iterative reconstruction, and/or weight-based adjustment of the mA/kV was utilized to reduce the radiation dose to as low as reasonably achievable. COMPARISON: MRI brain 09/23/2012 FINDINGS: Intracranial: Possible development of encephalomalacia in the bilateral mesial occipital parietal lobes, right greater than left, with ex vacuo dilatation of the posterior right lateral ventricle. Encephalomalacia in the bilateral cerebellar hemispheres, evolved from previously demonstrated hemorrhagic infarcts. Scattered foci of hypoattenuation within the periventricular and subcortical white matter are a nonspecific finding commonly attributed to chronic small vessel ischemic disease. No intracranial hemorrhage or abnormal extra-axial collection. No evidence of acute territorial infarct. No mass effect. No hydrocephalus. Osseous structures: No fracture. No suspicious lesion. Paranasal sinuses and mastoid air cells: No evidence of sinusitis. Mastoids are clear. Orbital contents: Globes are intact. IMPRESSION: 1.Bilateral LEAD SPRINKLER territory infarcts, new since 2012 but chronic appearing. 2.Expected evolution of bilateral cerebe llar hemorrhagic infarcts. 3.No acute intracranial hemorrhage. If there is persistent clinical concern for intracranial pathology, MR examination is recommended for further characterization. These findings were discussed with Dr. LILLI CRONIN on 02/12/2019 6:02 PM. Signed: Haley Pettit MD Report Verified Date/Time: 02/12/2019 18:02:57 Performing Organization Address City/State/Zipcode Ph one Number [facility] RIS after 01/10/2019 Insurance Type Payer Benefit Subscriber ID Effective Phone Address Plan / Dates Group Maps Contracted [facility] [id number] 2017- [employer] Present [address] [place] ([address]) [address], [address] Ritu Coles Personal/F Self [address] [place] ([address]) [address], [address] Advance Directives For more information, please contact: [phone] Date Inactivated Comments Code Status Date Activated 02/14/2019 12:22 AM Full Code 02/12/2019 7:52 PM This code status was determined by: Patient 09/26/2012 6:15 PM All possible means of suppor t, including: cardiac massage, mechanical ventilation, and defibrillation will be used to support life. Code ONE 09/20/2012 2:33 AM
--- OUTSIDE RECORDS SUMMARY | 2020-01-12 09:57 | XMS REPORT | Continuity of Care Document ---
Author Author [facility] t Organization [facility] Address [address] [place] [address] Phone Unavailable Care Team Providers Care Sound Art Instructor Name Role Phone Omayra MORENO JOSHUA Attphys Unavailable Ariane ENRIQUEZ, Andrew Mahoney Attphys Zainab Bass MD Attphys ANDREW CRONIN Attphys Unavailable ZAINAB BASS Admphys Unavailable Payers Payer Name Policy Type Policy Number Effective Date Expiration Date [id number] [id number] 2017 00:00:00 [facility] Problems Condition Name Condition Details Condition Category Status Onset Date Resolution Date Last Treatment Date Treating Clinician Comments Source Cerebrovascular accident (CVA), unspecified mechanism Cerebrovascular accident (CVA), unspecified mechanism Disease Active 2019-02-12 00:00:00 [facility] Pneumonia Pneumonia Disease Active 2012-09-20 00:00:00 [facility] Status post emergency tracheotomy for assistance in br eathing Status post emergency tracheotomy for assistance in breathing Disease Active 2012-09-20 00:00:00 [facility] Weakness generalized Weakness generalized Disease Active 00:00:00 [facility] Allergies, Adverse Reactions, Alerts Allergy Name Allergy Type Status Severity Reaction(s) Onset Date Inacti ve Date Treating Clinician Comments Source Lecithin, Soy (Bulk) Propensity to adverse reactions Active Shortness Of Breath 2019-02-13 00:00:00 [facility] Oats (Jeanie) Propensity to adverse reactions Active Sh ortness Of Breath 2019-02-13 00:00:00 [facility] Peas Propensity to adverse reactions Active Shor tness Of Breath 2019-02-13 00:00:00 [facility] Squash Propensity to adverse reactions Active Shor tness Of Breath 2019-02-13 00:00:00 [facility] [place] Propensity to adverse reactions Active Shor tness Of Breath 2019-02-13 00:00:00 [facility] Tomato (Solanum Lycopersicum) Propensity to adverse reactions Activ e Shortness Of Breath 2019-02-13 00:00:00 [facility] Wheat Containing Prod Propensity to adverse reactions Active Shortness Of Breath 2019-02-13 00:00:00 [facility] Codeine Drug Allergy Active 2012-09-20 00:00:00 [facility] Social History Social Habit Start Date Stop Date Quantity Comments Source Sex Assigned At [facility] Alcohol intake 2019-02-12 00:00:00 2019-02-12 00:00:00 [facility] Smoking Status Start Date Stop Date Source Never smoker [facility] Medications Ordered Medication Name Filled Medication Name Start Date Stop Da te Current Medication? Ordering Clinician Indication Dosage Frequency Signature (SIG) Comments Components Source enalapril (VASOTEC) 10 MG tablet 2019-02-13 22:22:00 Yes 10mg Take 10 mg by mouth every 12 (twelve) hours. [facility] omeprazole (PRILOSEC) 20 MG capsule 2019-02-13 22:22:00 Yes 20mg QD Take 20 mg by mouth daily. [facility] predniSONE (DELTASONE) 50 MG tablet 2019-02-13 22:22:00 Yes 25mg QD Take 25 mg by mouth daily. [facility] chloroquine (ARALEN) 250 mg tablet 2019-02-13 22:22:00 Yes 300mg QD Take 300 mg by mouth daily. Taken every 6pm [facility] losartan (COZAAR) 50 MG tablet 2019-02-13 22:22:00 Yes 50mg Take 50 mg by mouth every 8 (eight) hours. [facility] acetaminophen (TYLENOL) 500 MG tablet 2019-02-13 22:22:00 Y es 1000mg Take 1,000 mg by mouth every 6 (six) hours as needed. [facility] nystatin (MYCOSTATIN) 100,000 unit/mL suspension 2019-02-13 22:22:00 Yes Take by mouth every 8 (eight) hours. Dose: 100,000 Ul/mlGive 1 drop evry 8 hrs [facility] Missing or Non-Formulary Medication 2019-02-13 22:22:00 Yes 100mg QD Take 100 mg by mouth daily. [facility] fluticasone-salmeterol (ADVAIR) 100-50 mcg/dose diskus inhal er 2019-02-13 22:22:00 Yes 1{puff} Inhale 1 p uff by mouth via inhaler every 12 (twelve) hours. [facility] Missing or Non-Formulary Medication 2019-02-13 22:22:00 Yes 600mg Take 600 mg by mouth every 12 (twelve) hours. [facility] levETIRAcetam (KEPPRA) 500 MG tablet 2019-02-13 00:00: 00 2019-05-14 23:59:00 No 500mg Q.5D Take 1 tablet ( 500 mg total) by mouth 2 (two) times daily for 90 days. [facility] gabapentin (NEURONTIN) 300 MG capsule 2019-02-13 00:00 :00 2019-05-14 23:59:00 No 300mg Q.[id number] Take 1 capsule (300 mg total) by mouth 3 (three) times daily for 90 days. [facility] Vital Signs Vital Name Observation Time Observation Value Comments Source Heart rate 2019-02-13 20:07:00 84 /min [facility] Respiratory rate 2019-02-13 20:07:00 20 /min [facility] Oxygen saturation in Arterial blood by Pulse oximetry 2018-02 20:07:00 99 [facility] Sy[facility]olic [facility] pressure 2019-02-13 20:00:00 112 mm[Hg] [facility] Diastolic blood pressure 2019-02-13 20:00:00 54 mm[Hg] [facility] Body temperature 2019-02-13 19:00:00 36.89 Bernarda [facility] Body height 2019-02-13 08:00:00 151.1 cm [facility] Body weight 2019-02-12 18:07:00 89.359 kg [facility] BMI 2019-02-12 18:07:00 39.12 kg/m2 [facility] Procedures Procedure Date / Time Performed Performing Clinician [facility] e RHYTHM STRIP - SCAN 2019-02-22 11:10:41 Provider, Default Scanroberto dyer [facility] REPORT OF PROCEDURE - ENDOSCOPY SCAN 2019-02-22 11:10:38 Pro vider, Default Scanning [facility] ECHOCARDIOGRAM REPORT - SCAN 2019-02-13 21:20:48 Provider, Taty lt Scanning [facility] POCT-GLUCOSE METER 2019-02-13 18:05:00 [facility] MR BRAIN WITHOUT IV CONTRAST 2019-02-13 17:05:00 Edinson Menjivar [facility] POCT-GLUCOSE METER 2019-02-13 11:59:00 [facility] ECHO W CONTRAST & DOPPLER 2019-02-13 09:59:55 Kareem Contreras [facility] POCT-GLUCOSE METER 2019-02-13 08:05:00 [facility] HEMOGLOBIN A1C 2019-02-13 03:46:00 Kareem Contreras [facility] CBC W/PLT COUNT & AUTO DIFFERENTIAL 2019-02-13 03:46:00 Kareem Dasilva [facility] POCT-GLUCOSE METER 2019-02-12 22:25:00 [facility] XR CHEST 1 VIEW PORTABLE/BEDSIDE 2019-02-12 18:43:00 Cronin, Triston n [facility] CRITICAL CARE 2019-02-12 18:24:10 Ariane, [facility] ECG 12-LEAD 2019-02-12 18:21:[address] [facility] PROTHROMBIN TIME/INR 2019-02-12 18:15:00 Cronin, [facility] APTT 2019-02-12 18:15:00 Ariane, [facility] TROPONIN I 2019-02-12 18:15:00 Ariane, [facility] COMPREHENSIVE METABOLIC PANEL 2019-02-12 18:15:00 Ariane [facility] CBC W/PLT COUNT & AUTO DIFFERENTIAL 2019-02-12 18:15:00 Ariane, [facility] CTA BRAIN 2019-02-12 18:12:[address] [facility] CT/CTA CAROTID 2019-02-12 18:12:[address] [facility] POCT-GLUCOSE METER 2019-02-12 18:08:00 Ariane [facility] CT BRAIN/STROKE TEST DESIGN 2019-02-12 17:49:00 Cronin, [facility] Plan of Care Planned Activity Planned Date Details Comments Source Future Scheduled Test 2019-10-23 00:00:00 INFLUENZA VACCINE (#1) [code = INFLUENZA VACCINE (#1)] [facility] Future Scheduled Test 2018-11-10 00:00:00 MEDICARE ANNUAL WE LLNESS (YEAR 2 or FIRST YEAR if no IPPE) [code = MEDICARE ANNUAL WELLNESS (YEAR 2 or FIRST YEAR if no IPPE)] [facility] Test 2015-09-25 00:00:00 Lipid panel (proce dure) [code = 39716383] [facility] Future Scheduled Test 1976-08-08 00:00:00 Screening for emeka gnant neoplasm of cervix (procedure) [code = 984814137] [facility] Future Scheduled Test 1961-08-08 00:00:00 PNEUMOCOCCAL VACCI NE 0-64 YRS (1 of 1 - PPSV23) [code = PNEUMOCOCCAL VACCINE 0-64 YRS (1 of 1 - PPSV23)] [facility] Future Scheduled Test 1955 00:00:00 Screening for emeka gnant neoplasm of breast (procedure) [code = 879408828] [facility] Future Scheduled Test 1955 00:00:00 Screening for emeka gnant neoplasm of colon (procedure) [code = 020684693] [facility] Results Test Description Test Time Test Comments Results Result Comments Source CHEST SINGLE (PORTABLE) 2020-01-11 09:17:00 [facility] 1955 Sex: F [place] [address] Patient Name: MAKENNA COLES MR #: [id number] : 1955 Age/Sex: 64/F Req #: [id number] [facility] Physician: Ordered by: JOSHUA MORENO MD Report #: [id number] Location: Room/Bed: Procedure: [id number] DX/CHEST SINGLE (PORTABLE) Exam Date: 01/11/20 Exam Time: 0755 REPORT STATUS: Signed X-ray chest frontal view History: Tremors Comparison: None Findings: Lines and tubes: Not applicable Central airways: Unremarkable Cardiac silhouette: Unremarkable Mediastinal silhouettes: Unremarkable Pleura: No pleural effusion, pneumothorax or thickening Diaphragms: Unremarkable Lungs: No focal lung disease Skeletal structures: Unremarkable Extrathoracic soft tissues: Unremarkable Impression: No acute cardiopulmonary disease Signed by: Loc Hurd MD on 01/11/2020 9:19 AM Dictated By: LOC HURD MD 8 Transcribed By: GAVIN on 01/11/20918 COPY TO: JOSHUA MORENO MD CT BRAIN WO 2020-01-11 09:04:00 [facility] 1955 Sex: F [place] [address] Patient Name: MAKENNA COLES MR #: [id number] : 1955 Age/Sex: 64/F Req #: [id number] Adm Physician: Ordered by: JOSHUA MORENO MD Report #: [id number] Location: Room/Bed: Procedure: [id number] CT/CT BRAIN WO Exam Date: 01/11/20 Exam Time: 0950 REPORT STATUS: Signed CT BRAIN WO HISTORY: Tremors, history of stroke and seizure COMPARISON: Head CT and MRI of the brain 06/26/2016 Technique: Noncontrast axial scans were obtained from skull base to the vertex. Coronal and sagittal reconstructions obtained from the axial data. One or more of the following dose reduction techniques were used: Automated exposure control, adjustment of the mA and/or kV according to patient size, and/or utilization of iterative reconstruction technique. Beam hardening artifacts obscure some details. DISCUSSION: Scalp/Skull: Unremarkable. Brain sulci: Mildly prominent. Ventricles: Compensatory dilatation. Extra-axial spaces: No masses or fluid collections. Carotid siphon calcifications are present. Parenchyma: Scattered old infarcts along the bilateral parieto-occipital convexities (right greater than left) and bilateral cerebellar hemispheres are present. Mild bilateral deep white matter hypodensity is likely chronic microvascular ischemic change. Otherwise, no masses, hemorrhage, or large vascular territory acute infarct. Dural sinuses: No abnormal densities. Sellar/Suprasellar region: Intact. Skull base: Intact. Incidental findings: Bilateral ocular lens replacement. IMPRESSION: 1. No acute intracranial abnormalities. No significant changes when compared to head CT and brain MRI dated 06/26/2016. 2. Old cortical infarcts along the bilateral parieto-occipital convexities (right greater than left) and bilateral cerebellar hemispheres. 3. Mild supratentorial chronic microvascular ischemic change. Mild generalized cerebral volume loss. Signed by: Dr. Santosh Hurtado M.D. on 01/11/2020 9:11 AM Dictated By: SANTOSH HURTADO MD 0 Transcribed By: GAVIN on 01/11/20910 COPY TO: JOSHUA MORENO MD POC-Glucose meter 2019-02-13 19:12:00 Test Item POC-Glucose Meter (test code = 1538) 96 mg/dL 70-110 : TESTED AT [facility] [address] [facility], [address]: Planner Intern/Surveillance Inspector ID = [id number] for Tiesha Alfredo Lab Interpretation (test code = 62008-0) [facility] [id number] 19:12:00* Test Item Value Reference Range Interpretation Comments POC-GLUCOSE METER (BEAKER) (test code = 1538) 96 mg/dL 70-110 : TESTED AT [facility] [address] [facility], [address]: Planner Intern/Surveillance Inspector ID = [id number] for Tiesha Alfredo MR, BRAIN, WITHOUT [id number] 18:50:00FINAL REPORT MR, BRAIN, WITHOUT CONTRAST INDICATION: Stroke, follow up TECHNIQUE: Multiplanar, multisequence MR imaging of the brain without intravenous contrast. COMPARISON: CT and CTA 02/12/2019 FINDINGS: Intracranial: There is bilateral SHELL TRIM TOOL SETTER territory encephalomalacia, right greater than left, with exvacuodilatation of the posterior right lateral ventricle. Encephalomalacia in the bilateral cerebellar hemispheres, evolved from prior hemorrhagic infarcts. There is no restricted diffusion to indicate acute infarct. Scattered foci of T2 prolongation within the periventricular and subcortical white matter are a nonspecific finding commonly attributed to chronic small vessel ischemic diseas e. No acute intracranial hemorrhage. No mass effect. No hydrocephalus. Visualiz ed intracranial flow voids are of normal course and caliber. Sinuses: No evidenc e of sinusitis. Mastoids are clear. Orbits: Globes are intact. Calvarium \T\ sca lp: Unremarkable. IMPRESSION:1.No acute infarct or intracranial hemorrhage.2.Mul tifocal chronic infarcts as above. Signed: Haley Petitt Verified Date /Time: 02/13/2019 18:50:54 brain without IV [id number] 18:50:00 Interface, External Ris In - 02/13/2019 6:54 PM CSTFINAL REPORT PATIENT ID: [id number] MR, BRAIN, WITHOUT CONTRAST INDICATION: Stroke, follow up TECHNIQUE: Mul tiplanar, multisequence MR imaging of the brain without intravenous contrast. CO MPARISON: CT and CTA 02/12/2019 FINDINGS: Intracranial: There is bilateral SHELL TRIM TOOL SETTER territory encephalomalacia, right greater than left, with exvacuodilatation of t he posterior right lateral ventricle. Encephalomalacia in the bilateral cerebell ar hemispheres, evolved from prior hemorrhagic infarcts. There is no restricted diffusion to indicate acute infarct. Scattered foci of T2 prolongation within th e periventricular and subcortical white matter are a nonspecific finding commonl y attributed to chronic small vessel ischemic disease. No acute intracranial he morrhage. No mass effect. No hydrocephalus. Visualized intracranial flow voids a re of normal course and caliber. Sinuses: No evidence of sinusitis. Mastoids are clear. Orbits: Globes are intact. Calvarium \T\ scalp: Unremarkable. IMPRESSION :1.No acute infarct or intracranial hemorrhage.2.Multifocal chronic infarcts as above. Signed: Haley Pettiteport Verified Date/Time: 02/13/2019 18:50:54 [facility] 2D [facility] w contrast & doppler 2019-02-13 12:42:24Ejection FractionSLEH ECHO HEARTLAB MKCKESSON CPACSInterface, External Ris In - 02/13/2019 12:42 PM CSTTransthoracic Echocardiography Report (TTE) Demographics Patient Name MAKENNA COLES Date of Study 02/13/2019 ESTEFANIA Gender Female Visit Number [id number] Race Unknown Room Number 7517 Number Date of 1955 Referring Physician Age 63 year(s) Movie Operator Marjorie Hirsch [facility] Interpreting Floyd Robles Physician Procedure Type of Study TTE procedure:2DECHO W/CONTRAST & DOPPLER (Routine) Indications:Stroke and CVA.Clinical HistoryCVA;LUPUS;PNEUMONIA;TRACHEOSTOMY.Contrast Medium: Definity.Height: 59 inches Weight: 89.36 kg (197 lbs) BSA: 1.83 m^2 BMI: 39.79 kg/m^2HR: 67 bpm BP: 114/57 mmHg Summary The left ventricle is chamber size (by PSLAX dimension) is normal (male - LVIDd 4.2-5.8cm) . All of the LV segments contract normally . Estimated LVEF by qualitative assessment is normal (55-60%) . Normal diastolic function. Estimated peak systolic PA pressure is 40-45 mmHg . Kona-ko-bcegpqkj tricuspid regurgitation. IV saline contrast injection was [...] systolic PA pressure is 40-45 mmHg . Pvtf-zv-mgmfpaut tricuspid regurgitation. Pulmonic Valve PV is not well visualized. A trace of pulmonary regurgitation. Aorta Aortic root size (SInus of Valsalva ariana meter) is normal . Pericardium No pericardial effusion is visualized. IVC/SVC/PA/PV/Pleural The estimated RA pressure by IVC dynamics 5-10mmHg . Chambers/Structures Left Atrium LA Volume: 28.56 ml LA Area: 12.99 cm^2 LA Vol. Index: 16 ml/m ^2 Left Ventricle LVIDd: 4.99 cm LVEDV:117.63 ml LVIDs: 3.12 cm LVESV:30.37 ml LV Septum Diastolic: 0.59 cm LVEF 2D Cube: 75.5 % LV PW Diastolic: 1.04 cm LVEDV Simps on's:82.26 ml LV FS: 37.5 % LVESV De La Vega's:40.04 ml LVEF Sim pson's: 51.3 % LVEDVI: 45 ml/m^2 LVESVI: 22 ml/m^2 LVOT Diameter: 2.07 cm LVEF: 74.2 % Doppler /Quantitative Measurements Mitral Valve MV Peak E-Wave: 0.98 m/s MV P eak A-Wave: 0.86 m/s E/A Ratio: 1.14 Peak [...] CO: 6.59 l/min LVOT CI: 3.6 l/min/m^2 [facility] [id number] 12:10:00* Test Item Value Reference Range Interpretation Comments POC-GLUCOSE METER (BEAKER) (test code = 1538) 116 mg/dL 70-110 H : TESTED AT [facility] [address] [facility], [address]: Planner Intern/Surveillance Inspector ID = [id number] for Tiesha Alfredo Hemoglobin [id number] 09:08:00* Test Item Value Reference Range Interpretation Comments Hemoglobin A1C (test code = 4548-4) 4.9 % 4.3-6.1 Lab Interpretation (test code = 96961-7) Normal [facility] Center[facility]MO[facility]IN [id number] 09:08:00* Test Item Value Reference Range Interpretation Comments HEMOGLOBIN A1C (WOODROWAKER) (test code = 368) 4.9 % 4.3-6.1 POCT-GLUCOSE [id number] 08:17:00* Test Item Value Reference Range Interpretation Comments POC-GLUCOSE METER (WOODROWAKER) (test code = 1538) 86 mg/dL 70-110 : TESTED AT [facility] [address] [facility] [place], [address]: Planner Intern/Surveillance Inspector ID = [id number] for Tiesha Alfredo ECG 12 [id number] 08:14:19Interface, External Ris In - 02/13/2019 8:14 AM CSTVentricular Rate 73 BPMAtrial Rate 73 BPMP-R Interval 108 msQRS Duration 96 msQ-T Interval 388 msQTC Calculation(Bazett) 427 msP Anza 55 degreesR Anza -15 degreesT Anza 67 degreesSinus rhythm with short PRLow voltage QRSCannot rule out Anterior infarct , age undeterminedAbnormal ECGNo previous ECGs availableConfirmed by MD SHAN, FLOYD Meraz ([id number]) on 02/13/2019 8:14:14 [facility] with platelet count + automated [id number] 04:05:00* Test Item Value Reference Range Interpretation Comments WBC (test code = 6690-2) 5.7 3.5- 10.5 K/L RBC (test code = 789-8) 3.39 3.93- 5.22 M/L L MCHC (test code = 786-4) 33.5 32.2- 35.5 GM/DL L Hematocrit (test code = 4544-3) 32.5 % 34.1-44.9 L MCV (test code = 787-2) 95.9 fL 79.4-94.8 H MCH (test code = 785-6) 32.2 pg 25.6-32.2 RDW (test code = 788-0) 13.4 % 11.7-14.4 Platelets (test code = 777-3) 149 150- 450 K/CU MM L MPV (test code = 33930-7) 9.7 fL 9.4-12.3 nRBC (test code = 413) 0 0- 0 /100 WBC % Neutros (test code = 429) 65 % % Lymphs (test code = 430) 26 % % Monos (test code = 431) 8 % % Eos (test code = 432) 1 % % Baso (test code = 437) 0 % # Neutros (test code = 670) 3.70 1.56- 6.13 K/L # Lymphs (test code = 414) 1.48 1.18- 3.74 K/L # Monos (test code = 415) 0.43 0.24- 0.36 K/L H # Eos (test code = 416) 0.03 0.04- 0.36 K/L L # Baso (test code = 417) 0.02 0.01- 0.08 K/L Immature Granulocytes-Relative (test code = 2801) 0 % 0-1 Lab Interpretation (test code = 85946-4) Abnormal [facility] W/PLT COUNT & AUTO [id number] 04:05:00* Test Item Value Reference Range Interpretation Comments WHITE BLOOD CELL COUNT (BEAKER) (test code = 775) 5.7 K/ L 3.5- 10.5 RED BLOOD CELL COUNT (BEAKER) (test code = 761) 3.39 M/ L 3.93-5 .22 L HEMOGLOBIN (BEAKER) (test code = 410) 10.9 GM/DL 11.2-15.7 L HEMATOCRIT (BEAKER) (test code = 411) 32.5 % 34.1-44.9 L MEAN CORPUSCULAR VOLUME (BEAKER) (test code = 753) 95.9 fL 79. 4-94.8 H MEAN CORPUSCULAR HEMOGLOBIN (BEAKER) (test code = 751) 32.2 pg 25.6-32.2 MEAN CORPUSCULAR HEMOGLOBIN CONC (BEAKER) (test code = 752) 33.5 GM/DL 32.2-35.5 RED CELL DISTRIBUTION WIDTH (BEAKER) (test code = 412) 13.4 % 11.7-14.4 PLATELET COUNT (BEAKER) (test code = 756) 149 K/CU MM 150-450 L MEAN PLATELET VOLUME (BEAKER) (test code = 754) 9.7 fL 9.4-12 .3 NUCLEATED RED BLOOD CELLS (BEAKER) (test code = 413) 0 /100 WBC 0 -0 NEUTROPHILS RELATIVE PERCENT (BEAKER) (test code = 429) 65 % LYMPHOCYTES RELATIVE PERCENT (BEAKER) (test code = 430) 26 % MONOCYTES RELATIVE PERCENT (BEAKER) (test code = 431) 8 % EOSINOPHILS RELATIVE PERCENT (BEAKER) (test code = 432) 1 % BASOPHILS RELATIVE PERCENT (BEAKER) (test code = 437) 0 % NEUTROPHILS ABSOLUTE COUNT (BEAKER) (test code = 670) 3.70 K/ L 1.56-6.13 LYMPHOCYTES ABSOLUTE COUNT (BEAKER) (test code = 414) 1.48 K/ L 1.18-3.74 MONOCYTES ABSOLUTE COUNT (BEAKER) (test code = 415) 0.43 K/ L 0. 24-0.36 H EOSINOPHILS ABSOLUTE COUNT (BEAKER) (test code = 416) 0.03 K/ L 0.04-0.36 L BASOPHILS ABSOLUTE COUNT (BEAKER) (test code = 417) 0.02 K/ L 0. 01-0.08 IMMATURE GRANULOCYTES-RELATIVE PERCENT (BEAKER) (test code = 2801) 0 % 0-1 POCT-GLUCOSE [id number] 22:36:00* Test Item Value Reference Range Interpretation Comments POC-GLUCOSE METER (BEAKER) (test code = 1538) 86 mg/dL 70-110 : TESTED AT [facility] [address] [facility], [address]: Planner Intern/Surveillance Inspector ID = [id number] for GLORIA GOODSON RAD, CHEST, 1 VIEW, NON [id number] 19:19:00Reason for exam:->Stroke EvalShould this be performed at the bedside?->YesFINAL REPORT TECHNIQUE: Frontal view of the chest. INDICATION: Stroke Eval COMPARISON:09/26/2012 IMPRESSION:Lines and hardware: None.Heart and mediastinum: Unremarkable.Lungs and pleura: No focal airspace consolidation. Minimal left basilar atelectasis. Trace left pleural effusion. No pneumothorax.Soft tissues and bones: No acute abnormality. Signed: Mendoza Antonio Verified Date/Time: 02/12/2019 19:19:26 Reading Location: [address] Reading Room chest 1 view portable / [id number] 19:19:00Interface, External Ris In - 02/12/2019 7:21 PM CSTFINAL REPORT TECHNIQUE: Frontal view of the chest. INDICATION: Stroke Eval COMPARISON:09/26/2012 IMPRESSION:Lines and hardware: None.Heart and mediastinum: Unremarkable.Lungs and pleura: No focal airspace consolidation. Minimal left basilar atelectasis. Trace left pleural effusion. No pneumothorax.Soft tissues and bones: No acute abnormality. Signed: Mendoza Antonio Verified Date/Time: 02/12/2019 19:19:26 Reading Location: [address] Consult Reading Room Electronically si gned by: MENDOZA ANTONIO DO on 02/12/2019 07:19 PM [facility], CTANGIO [id number] 19:06:00FINAL REPORT CLINICAL HISTORY: Ataxia, stroke suspected TECHNIQUE: [...] iterative reconstruction technique. Stenosis evaluation reported in c ompliance with NASCET criteria. COMPARISON: Noncontrast CT head 02/12/2019 FINDI NGS: CTA head:There is no evidence of intracranial aneurysm. No major branch ves douglas occlusion or high-grade focal stenosis. Right SHELL TRIM TOOL SETTER is predominantly supplied by P-comm The major intradural venous sinuses are patent. CTA neck:Great vessel origins: No occlusion or high-grade stenosis. Carotid arteries: No occlusion or high-grade stenosis. Vertebral arteries: No occlusion or high-grade stenosis. Mild degenerative changes of the cervical spine. Cervical soft tissues are unrem arkable. Visualized lung apices are clear. IMPRESSION:No large vessel occlusi on or high-grade focal stenosis. Signed: Haley Pettit Verified Date/T thiago: 02/12/2019 19:06:41 , CAROTID, [id number] 19:06:00FINAL REPORT CLINICAL HISTORY: Ataxia, stroke suspected TECHNIQUE: [...] iterative reconstruction technique. Stenosis evaluation reported in c ompliance with NASCET criteria. COMPARISON: Noncontrast CT head 02/12/2019 FINDI NGS: CTA head:There is no evidence of intracranial aneurysm. No major branch ves douglas occlusion or high-grade focal stenosis. Right SHELL TRIM TOOL SETTER is predominantly supplied by [employer] The major intradural venous sinuses are patent. CTA neck:Great vessel origins: No occlusion or high-grade stenosis. Carotid arteries: No occlusion or high-grade stenosis. Vertebral arteries: No occlusion or high-grade stenosis. Mild degenerative changes of the cervical spine. Cervical soft tissues are unrem arkable. Visualized lung apices are clear. IMPRESSION:No large vessel occlusi on or high-grade focal stenosis. Signed: Haley Pettit Verified Date/T thiago: 02/12/2019 19:06:41 [id number] 19:06:00Interface, External Ris In - 02/12/2019 7:08 PM CSTFINAL REPORT CLINICAL HISTORY: Ataxia, stroke suspected TECHNIQUE: Contiguous contrast-enhanced axial images through the neck followed by axial images through the head with coronal and sagittal reformations to assess the arterial circulation. 3-D reconstructions were performed using a volume rendered technique separately on a workstation. This exam was performed according to the departmental dose optimization program which includes automated exposure control, adjustment of th e mA and/or kV according to the patient size, and/or use of an iterative reconst ruction technique. Stenosis evaluation reported in compliance with NASCET criter ia. COMPARISON: Noncontrast CT head 02/12/2019 FINDINGS: CTA head:There is no ev idence of intracranial aneurysm. No major branch vessel occlusion or high-grade focal stenosis. 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 CTA neck:Great vessel origins: No occlusion or hi gh-grade stenosis. Carotid arteries: No occlusion or high-grade stenosis. Verte bral arteries: No occlusion or high-grade stenosis. Mild degenerative changes of the cervical spine. Cervical soft tissues are unremarkable. Visualized lung api lulu are clear. IMPRESSION:No large vessel occlusion or high-grade focal steno sis. Signed: Haley Pettit Verified Date/Time: 02/12/2019 19:06:41 [facility] [id number] 19:06:00Interface, External Ris In - 02/12/2019 7:08 PM CSTFINAL REPORT CLINICAL HISTORY: Ataxia, stroke suspected TECHNIQUE: Contiguous contrast-enhanced axial images through the neck followed by axial images through the head with coronal and sagittal reformations to assess the arterial circulation. 3-D reconstructions were performed using a volume rendered technique separately on a workstation. This exam was performed according to the departmental dose optimization program which includes automated exposure control, adjustment of th e mA and/or kV according to the patient size, and/or use of an iterative reconst ruction technique. Stenosis evaluation reported in compliance with NASCET criter ia. COMPARISON: Noncontrast CT head 02/12/2019 FINDINGS: CTA head:There is no ev idence of intracranial aneurysm. No major branch vessel occlusion or high-grade focal stenosis. 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 CTA neck:Great vessel origins: No occlusion or hi gh-grade stenosis. Carotid arteries: No occlusion or high-grade stenosis. Verte bral arteries: No occlusion or high-grade stenosis. Mild degenerative changes of the cervical spine. Cervical soft tissues are unremarkable. Visualized lung api lulu are clear. IMPRESSION:No large vessel occlusion or high-grade focal steno sis. Signed: Haley Pettit Verified Date/Time: 02/12/2019 19:06:41 [facility] [id number] 18:53:00* Test Item Value Reference Range Interpretation Comments Troponin I (test code = 16953-6) <0.01 0-0.03 CHUCK (test code = CHUCK) Troponin I (TnI) levels must be interpreted in the context of the presenting symptoms and the clinical findings. Elevated TnI levels indicate myocardial damage, but are not specific for ischemic heart disease. Elevated TnI levels are seen in patients with other cardiac conditions (including myocarditis and congestive heart failure), and slight TnI elevations occur in patients with other conditions, including sepsis, renal failure, acidosis, acute neurological disease, and persistent tachyarrhythmia. Lab Interpretation (test code = 56918-9) Normal [facility] [id number] 18:53:00* Test Item Value Reference Range Interpretation Comments TROPONIN I (BEAKER) (test code = 397) < ng/mL 0.00-0.03 Troponin I (TnI) levels must be interpreted in the context of the presenting sym ptoms and the clinical findings. Elevated TnI levels indicate myocardial damage, but are not specific for ischemic heart disease. Elevated TnI levels are seen in patients with other cardiac conditions (including myocarditis and congestive h eart failure), and slight TnI elevations occur in patients with other conditions , including sepsis, renal failure, acidosis, acute neurological disease, and per sistent tachyarrhythmia.Comprehensive metabolic [id number] 18:47:00* Test Item Value Reference Range Interpretation Comments Protein, Total (test code = 2885-2) 6.3 6.0- 8.3 gm/dL Albumin (test code = 88349-8) 3.9 g/dL 3.5-5 Alkaline Phosphatase (test code = 6768-6) 66 U/L 40-150 Total Bilirubin (test code = 1975-2) 0.5 mg/dL 0.2-1.2 Sodium (test code = 2951-2) 134 meq/L 136-145 L Potassium (test code = 2823-3) 4.0 meq/L 3.5-5.1 Chloride (test code = 2075-0) 98 meq/L 98-107 CO2 (test code = 8-9) 27 meq/L 22-29 BUN (test code = 3094-0) 21 mg/dL 7-21 Creatinine (test code = 2160-0) 0.87 mg/dL 0.57-1.25 Glucose (test code = 2345-7) 105 mg/dL 70-105 Calcium (test code = 52400-0) 8.9 mg/dL 8.4-10.2 AST (test code = 1920-8) 39 U/L 5-34 H ALT (test code = 1742-6) 53 U/L 6-55 EGFR (test code = 04601-3) 66 mL/min/1.73 sq m ESTIMATED GFR IS NOT ACCURATE CREATININE CLEARANCE IN PREDICTING GLOMERULAR FILTRATION RATE. ESTIMATED GFR IS NOT APPLICABLE FOR DIALYSIS PATIENTS. Lab Interpretation (test code = 46570-0) [facility] [id number] 18:47:00* Test Item Value Reference Range Interpretation Comments TOTAL PROTEIN (BEAKER) (test code = 770) 6.3 gm/dL 6.0-8.3 ALBUMIN (BEAKER) (test code = 1145) 3.9 g/dL 3.5-5.0 ALKALINE PHOSPHATASE (BEAKER) (test code = 346) 66 U/L 40-150 BILIRUBIN TOTAL (BEAKER) (test code = 377) 0.5 mg/dL 0.2-1.2 SODIUM (BEAKER) (test code = 381) 134 meq/L 136-145 L POTASSIUM (BEAKER) (test code = 379) 4.0 meq/L 3.5-5.1 CHLORIDE (BEAKER) (test code = 382) 98 meq/L 98-107 CO2 (BEAKER) (test code = 355) 27 meq/L 22-29 BLOOD UREA NITROGEN (BEAKER) (test code = 354) 21 mg/dL 7-21 CREATININE (BEAKER) (test code = 358) 0.87 mg/dL 0.57-1.25 GLUCOSE RANDOM (BEAKER) (test code = 652) 105 mg/dL 70-105 CALCIUM (BEAKER) (test code = 697) 8.9 mg/dL 8.4-10.2 AST (SGOT) (BEAKER) (test code = 353) 39 U/L 5-34 H ALT (SGPT) (BEAKER) (test code = 347) 53 U/L 6-55 EGFR (BEAKER) (test code = 1092) 66 mL/min/1.73 sq m ESTIMATED GFR IS NOT ACCURATE CREATININE CLEARANCE IN PREDICTING GLOMERULAR FILTRATION RATE. ESTIMATED GFR IS NOT APPLICABLE FOR DIALYSIS PATIENTS. CBC W/PLT COUNT & AUTO [id number] 18:46:00* Test Item Value Reference Range Interpretation Comments WHITE BLOOD CELL COUNT (BEAKER) (test code = 775) 6.7 K/ L 3.5- 10.5 RED BLOOD CELL COUNT (BEAKER) (test code = 761) 3.43 M/ L 3.93-5 .22 L HEMOGLOBIN (BEAKER) (test code = 410) 11.1 GM/DL 11.2-15.7 L HEMATOCRIT (BEAKER) (test code = 411) 32.9 % 34.1-44.9 L MEAN CORPUSCULAR VOLUME (BEAKER) (test code = 753) 95.9 fL 79. 4-94.8 H MEAN CORPUSCULAR HEMOGLOBIN (BEAKER) (test code = 751) 32.4 pg 25.6-32.2 H MEAN CORPUSCULAR HEMOGLOBIN CONC (BEAKER) (test code = 752) 33.7 GM/DL 32.2-35.5 RED CELL DISTRIBUTION WIDTH (BEAKER) (test code = 412) 13.2 % 11.7-14.4 PLATELET COUNT (BEAKER) (test code = 756) 127 K/CU MM 150-450 L MEAN PLATELET VOLUME (BEAKER) (test code = 754) 8.7 fL 9.4-12 .3 L NUCLEATED RED BLOOD CELLS (BEAKER) (test code = 413) 0 /100 WBC 0 -0 NEUTROPHILS RELATIVE PERCENT (BEAKER) (test code = 429) 84 % LYMPHOCYTES RELATIVE PERCENT (BEAKER) (test code = 430) 12 % MONOCYTES RELATIVE PERCENT (BEAKER) (test code = 431) 4 % EOSINOPHILS RELATIVE PERCENT (BEAKER) (test code = 432) 0 % BASOPHILS RELATIVE PERCENT (BEAKER) (test code = 437) 0 % NEUTROPHILS ABSOLUTE COUNT (BEAKER) (test code = 670) 5.61 K/ L 1.56-6.13 LYMPHOCYTES ABSOLUTE COUNT (BEAKER) (test code = 414) 0.78 K/ L 1.18-3.74 L MONOCYTES ABSOLUTE COUNT (BEAKER) (test code = 415) 0.24 K/ L 0. 24-0.36 EOSINOPHILS ABSOLUTE COUNT (BEAKER) (test code = 416) 0.00 K/ L 0.04-0.36 L BASOPHILS ABSOLUTE COUNT (BEAKER) (test code = 417) 0.01 K/ L 0. 01-0.08 IMMATURE GRANULOCYTES-RELATIVE PERCENT (BEAKER) (test code = 2801) 0 % 0-1 [id number] 18:37:00* Test Item Value Reference Range Interpretation Comments PTT (test code = 44228-8) 30.8 22.5- 36.0 seconds Lab Interpretation (test code = 11066-6) [facility] 18:37:00* Test Item Value Reference Range Interpretation Comments PARTIAL THROMBOPLASTIN TIME (BEAKER) (test code = 760) 30.8 seconds 22.5-36.0 Prothrombin time/[id number] 18:36:00* Test Item Value Reference Range Interpretation Comments Protime (test code = 5902-2) 13.8 11.9- 14.2 seconds INR (test code = 6301-6) 1.1 <=5.9 CHUCK (test code = CHUCK) Effective 07/19/2018: PT Refe rence Range ChangeNew: 11.9- 14.2 Previous: 11.7-14.7 RECOMMENDED COUMADIN/WARFARIN INR THERAPY RANGESSTANDARD DOSE: 2.0-3.0 Includes: PROPHYLAXIS for venous thrombosis, sys temic embolization; TREATMENT for venous thrombosis and/or pulmonary embolus.HIGH RISK: Target INR is 2.5-3.5 for patients wiht mechanical heart valves. Lab Interpretation (test code = 77668-4) Normal [facility] CenterPROTHROMBIN TIME/[id number] 18:36:00* Test Item Value Reference Range Interpretation Comments PROTIME (BEAKER) (test code = 759) 13.8 seconds 11.9-14.2 INR (BEAKER) (test code = 370) 1.1 <=5.9 Effective 07/19/2018: PT Reference Range ChangeNew: 11.9-14.2 Previous: 11.7-14. 7RECOMMENDED COUMADIN/WARFARIN INR THERAPY RANGESSTANDARD DOSE: 2.0-3.0 Include s: PROPHYLAXIS for venous thrombosis, systemic embolization; TREATMENT for venou s thrombosis and/or pulmonary embolus.HIGH RISK: Target INR is 2.5-3.5 for patie nts wiht mechanical heart valves.POCT-GLUCOSE [id number] 18:27:00* Test Item Value Reference Range Interpretation Comments POC-GLUCOSE METER (MONICA) (test code = 1538) 105 mg/dL 70-110 : TESTED AT [facility] [address] [facility], [address]: Planner Intern/Surveillance Inspector ID = [id number] for Aysha Hernandez CRITICAL [id number] 18:24:10Lilli Cronin MD 02/12/2019 9:28 PMCritical CarePerformed by: Lilli Cronin MDAuthorized by: Lilli Cronin MD Total critical care time: 35 minutesCritical care time was exclusive of separately billable procedures and treating other patients.Critical care was necessary to treat or prevent imminent or life-threatening deterioration of the following conditions: MUSEUM EXHIBIT TECHNICIAN failure or compromise.Critical care was time spent personally by me on the following activities: discussions with consultants, evaluation of patient's response to treatment, examination of patient, obtaining history from patient or surrogate, ordering and performing treatments and interventions, ordering and review of laboratory studies, ordering and review of radiographic studies, pulse oximetry and re-evaluation of patient's condition. [facility], [facility]RAIN/STROKE [id number] 18:02:00Reason for exam:->cvaWhat is the patient's sedation requirement?->No SedationFINAL REPORT CT, BRAIN/STROKE PROTOCOL INDICATION: Ataxia, stroke suspectedcva TECHNIQUE: Noncontrast axial imaging was obtained from the vertex to the skull base. Axial images were reconstructed using a bone algorith m. DOSE REDUCTION: Dose modulation, iterative reconstruction, and/or weight-base d adjustment of the mA/kV was utilized to reduce the radiation dose to as low as reasonably achievable. COMPARISON: MRI brain 09/23/2012 FINDINGS: Intracranial: P ossible development of encephalomalacia in the bilateral mesial occipital pariet al lobes, right greater than left, with ex vacuo dilatation of the posterior rig ht lateral ventricle. Encephalomalacia in the bilateral cerebellar hemispheres, evolved from previously demonstrated hemorrhagic infarcts. Scattered foci of hyp oattenuation within the periventricular and subcortical white matter are a nonsp ecific finding commonly attributed to chronic small vessel ischemic disease. No intracranial hemorrhage or abnormal extra-axial collection. No evidence of acute territorial infarct. No mass effect. No hydrocephalus. Osseous structures: No fracture. No suspicious lesion. Paranasal sinuses and mastoid air cells: No evid ence of sinusitis. Mastoids are clear. Orbital contents: Globes are intact. 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 If there is persistent clinical concern for intracranial pathology, MR examination is recommended for further characterization. These fin dings were discussed with Dr. LILLI CRONIN on 02/12/2019 6:02 PM. Signed: Haley Costa Verified Date/Time: 02/12/2019 18:02:57 Electronically sig karen by: HALEY PETTIT MD on 02/12/2019 06:[address] brain/stroke [id number] 18:02:00Interface, External Ris In - 02/12/2019 6:[address], BRAIN/STROKE PROTOCOL INDICATION: Ataxia, stroke suspectedcva TECHNIQUE: Noncontrast axial imaging was obtained from [...] Orbital contents: Globes are intact. IMPRESSION: 1.Bilateral SHELL TRIM TOOL SETTER terr itory infarcts, new since 2012 but chronic appearing.2.Expected evolution of lucho ateral cerebellar hemorrhagic infarcts.3.No acute intracranial hemorrhage. If th ere is persistent clinical concern for intracranial pathology, MR examination is recommended for further characterization. These findings were discussed with Dr. LILLI CRONIN on 02/12/2019 6:02 PM. Signed: Haley Pettit MDReport Verified Date/Time: 02/12/2019 18:02:57 [facility]- XR FOOT 3 + V RT 2018-11-02 13:45:00Patient Name: MAKENNA COLES Unit No: [id number] EXAMS: CPT: [id number] XR FOOT 3 + V RT [address] RADIOGRAPH : Right foot 4 views COMPARISON: None CLINICAL HISTORY: Rheumatoid arthritis FINDINGS: No acute fracture or dislocation identified. Mild to moderate degenerative changes seen in the 1st MTP joint with joint space narrowing, subchondral sclerosis, and osteophyte formation. Mild degenerative changes are also seen in the DIP and PIP joints of the toes. Mild degenerative changes are also seen in the tarsal joints. No bony erosion. No suspicious osseous lesion identified. IMPRESSION: No acute findings identified. Degenerative changes seen in the right foot and ankle, worse in the 1st MTP joint. No bony erosion identified. at 1345 Reported and signed by: Kip Cronin MD CC: Rick Valle MD; Francisca Yepez MD Technologist: Anny Augustin Time: DAP (Gy m2): Air Kerma (mGy): Trscr Dt/Tm: 11/02/2018 (1345) by:Farrah Orig Print D/T: S: 11/02/2018 (8272) BATCH NO: N/A Name: CARLMAKENNA [facility] Phys: LEOLA - Francisca Yepez MD [address] [place] [address] : 1955 Age: 63 Sex: F [place], [place] [address] Loc: N.RAD Exam Date: 11/02/2018 Status: REG CLI PH: FAX: PAGE 1 Signed Report - XR FOOT 3 + V [id number] 13:44:00Patient Name: MAKENNA COLES Unit No: [id number] EXAMS: CPT: [id number] XR FOOT 3 + [place] [address] RADIOGRAPH : Left foot 4 views COMPARISON: None CLINICAL HISTORY: Rheumatoid arthritis FINDINGS: No acute fracture or dislocation identified. Moderate degenerative changes seen in the 1st MTP joint with joint space narrowing, subchondral sclerosis, and osteophyte formation. Mild degenerative changes are also seen in the DIP and PIP joints of the toes. Mild degenerative changes are also seen in the ankle joint. No bony erosion. No suspicious osseous lesion identified. IMPRESSION: No acute findings identified. Degenerative changes seen in the left foot and ankle, worse in the 1st MTP joint. No bony erosion identified. at 1344 Reported and signed by: Kip Cronin MD CC: Rick Valle MD; Francisca Yepez MD Technologist: Anny Augustin Time: DAP (Gy m2): Air Kerma (mGy): Trscr Dt/Tm: 11/02/2018 (1344) by:RadhaHNN Orig Print D/T: S: 11/02/2018 (1347) BATCH NO: N/A Name: MAKENNA COLES [facility] Phys: LEOLA - Francisca Yepez MD [address] [facility] : 1955 Age: 63 Sex: F [place], [place] [address] Loc: N.RAD Exam Date: 11/02/2018 Status: REG CLI PH: FAX: PAGE 1 Signed Report - XR KNEE 4 + V [id number] 13:39:00Patient Name: MAKENNA COLES Unit No: [id number] EXAMS: CPT: [id number] XR KNEE 4 + [place] LT [address] Clinical History: RHEUMATOID ARTHRITIS. Exam: - XR KNEE 4 + V LT Technique and Comparison: 3 views of the left knee including AP, lateral, and sunrise views performed 11/02/2018 without prior comparison. Findings: Mild marginal spurring of the medial compartment associated with moderate joint space narrowing. There is also mild spurring at the anterior compartment with preservation of the joint space. Enthesophyte formation along the superior pole of the patella. No significant joint effusion is appreciated. No radiopaque foreign body seen. Impression: Degenerative changes with osteoarthritic features particularly of the medial compartment of the left knee. at 1339 Reported and signed by: Nicole Dunham MD CC: Rick Valle MD; Francisca Yepez MD Technologist: Anny Loyola Fluoro Time: DAP (Gy m2): Air Kerma (mGy): Trscr Dt/Tm: 11/02/2018 (3285) by:[email or web address] Orig Print D/T: S: 11/02/2018 (1342) BATCH NO: N/A Name: MAKENNA COLES [facility] Phys: Francisca Villafana MD [address] [facility] : 1955 Age: 63 Sex: F [place] [address] Loc: [facility] Exam Date: 11/02/2018 Status: REG CLI PH: FAX: PAGE 1 Signed Report - XR KNEE 4 + V [id number] 13:38:00Patient Name: MAKENNA COLES Unit No: [id number] EXAMS: CPT: [id number] XR KNEE 4 + V RT [address] Clinical History: RHEUMATOID ARTHRITIS. Exam: - XR KNEE 4 + V RT Technique and Comparison: 4 views of the right knee including AP, lateral, and sunrise views performed 11/02/2018 without prior comparison. Findings: No acute fracture or joint dislocation is appreciated. Mild marginal spurring of the anterior and medial compartments, associated with mild joint space narrowing. Mild enthesophyte formation along the superior pole of the patella at the insertion site of the quadriceps tendon. No significant joint effusion is appreciated radiographically. No radiopaque foreign body seen. Impression: Degenerative changes of the right knee with osteoarthritic features, particularly at the anterior and medial compartments. at 1338 Reported and signed by: Nicole Dunham MD CC: Rick Valle MD; Francisca Yepez MD Technologist: Anny Loyola Fluoro Time: DAP (Gy m2): Air Kerma (mGy): Trscr Dt/Tm: 11/02/2018 (7145) by:[email or web address] Orig Print D/T: S: 11/02/2018 (1571) BATCH NO: N/A Name: MAKENNA COLES [facility] Phys: Francisca Villafana MD [address] [place] : 1955 Age: 63 Sex: F [place], [place] [address] Loc: N.RAD Exam Date: 11/02/2018 Status: REG CLI PH: FAX: PAGE 1 Signed Report - XR HAND 3 + V [id number] 13:36:00Patient Name: MAKENNA COLES Unit No: [id number] EXAMS: CPT: [id number] XR HAND 3 + [place] [id number] Clinical History: RHEUMATOID ARTHRITIS. Exam: - XR HAND 3 + V LT Technique and Comparison: 4 views of the left hand including PA, oblique, and lateral views performed 11/02/2018 without prior comparison. Findings: Bone mineralization is within normal limits. Small deformity with adjacent ossific density of the 3rd distal phalangeal tuft likely from old trauma. Otherwise no evidence of acute fracture or joint dislocation is identified. Mild degenerative changes with marginal spurring and subchondral cyst formation at the 1st metacarpophalangeal joint and of the distal interphalangeal joints particularly of the 1st and 3rd digits. No evidence of bony erosion or periosteal reaction. No bony ankylosis is appreciated. No radiopaque foreign body seen. Impression: Mild degenerative changes with osteoarthritic features. Old trauma involving the 3rd distal phalangeal tuft. at 1336 Reported and signed by: Niocle Dunham MD CC: Rick Valle MD; Francisca Yepez MD Technologist: Anny Loyola Fluoro Time: DAP (Gy m2): Air Kerma (mGy): Trscr Dt/Tm: 11/02/2018 (6536) by:[email or web address] Orig Print D/T: S: 11/02/2018 (1332) BATCH NO: N/A Name: MAKENNA COLES [facility] Phys: Francisca Villafana MD [address] [place] : 1955 Age: 63 Sex: F [place], [place] [address] Loc: N.RAD Exam Date: 11/02/2018 Status: REG CLI PH: FAX: PAGE 1 Signed Report - XR HAND 3 + V [id number] 13:34:00Patient Name: MAKENNA COLES Unit No: [id number] EXAMS: CPT: [id number] XR HAND 3 + V RT [address] Clinical History: RHEUMATOID ARTHRITIS. Exam: - XR HAND 3 + V RT Technique and Comparison: 4 views of the right hand including PA, oblique, and lateral views performed 11/02/2018 without prior comparison. Findings: Bone mineralization is within normal limits. No acute fracture or joint dislocation. Mild marginal spurring of the distal interphalangeal joints particularly of the 2nd and 3rd digits. No bony erosion or periosteal reaction is appreciated. No bony ankylosis is identified. No radiopaque foreign body seen. Impression: Very mild degenerative changes of the DIP joints with osteoarthritic features. at 1334 Reported and signed by: Nicole Dunham MD CC: Rick Valle MD; Francisca Yepez MD Technologist: Anny Augustin Time: DAP (Gy m2): Air Kerma (mGy): [facility] Dt/Tm: 11/02/2018 (2224) by:[email or web address] Orig Print D/T: S: 11/02/2018 (1339) BATCH NO: N/A Name: MAKENNA COLES [facility] Phys: Francisca Villafana MD [address] [place] : 1955 Age: 63 Sex: F [place], [place] [address] Loc: N.RAD Exam Date: 11/02/2018 Status: REG CLI PH: FAX: PAGE 1 Signed Report MR, SPINE, THORACIC, WITHOUT [id number] 15:49:00FINAL REPORT MRI OF THE THORACIC SPINE HISTORY: Back pain, thoracic spondylosis COMPARISON: None TECHNIQUE: Multiplanar multisequence MRI of the thoracic spine was performed without contrast. FINDINGS: No thoracic fracture is visualized. No destructive bone lesion. No suspicious marrow signal abnormalities. Mild multilevel disc space narrowing from T5-T6 through T10-T11. Multilevel chronic endplate Schmorl's nodes throughout the thoracic spine, most pronounced from T6- T7 through T9-T10. Mild multilevel costovertebral joint arthrosis in the mid to upper thoracic spine. Minimal disc bulge at T4-T5. Mild focal central disc protrusion at T5-T6. Minimal disc bulges at T8-T9 and T9-T10. Mild facet arthropathy at T9-T10. Mild focal central disc protrusion at T10-T11. Mild facet arthrosis at T10-T11. Mild facet arthropathy at T11-T12 and T12-L1. No si gnificant spinal canal or foraminal compromise are visualized. No abnormal thora cic spinal cord signal. No spinal cord compression. No abnormalities are visuali zed in the imaged posterior mediastinum or retroperitoneum. IMPRESSION: 1. 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 Signed: Julissa Jeff MDReport Veri fied Date/Time: 11/25/2017 15:49:54 Reading Location: [facility] Radiology Reading Ro om
== END 2020-01-11 10:58 | disposition home or self-care (01) ==
LOC: ER 08:03
DX: R25.1 Tremor, unspecified (principal); N39.0 Urinary tract infection, site not specified; I69.354 Hemiplegia and hemiparesis following cerebral infarction affecting left non-dominant side; Z20.828 Contact with and (suspected) exposure to other viral communicable diseases
CPT/HCPCS: 36415; 70450; 71045; 80053; 81001; 82550; 82553; 83735; 83880; 84484; 85025; 85610; 85730; 87040; 87086; 87186; 87400; 94640; 99284; J1885; J2060; J7040; U0002